=== PATIENT | female | born 1935 | race Caucasian/White ===

== ENCOUNTER 2018-08-20 10:12 | Inpatient (IN) ==
[2018-08-20 11:08] LABS: BASO# 0.04 X1000 (0.0-0.2); BASO% 0.5 % (0.0-0.8); EOS% 2.5 % (0.0-10.0); HEMATOCRIT 37.6 % (37.0-47.0); HEMOGLOBIN 11.7 g/dL (12.0-16.0); IMM GRAN# 0.01 X1000 (0.0-0.04); IMM GRAN% 0.1 % (0.0-0.5); LYMPH# 1.53 X1000 (1.2-3.4); LYMPH% 19.2 % (20.5-51.1); MCH 28.5 PG (27-31); MCHC 31.1 g/dL (33-37); MCV 91.7 FL (81-99); MONO# 0.77 X1000 (0.11-0.59); MONO% 9.6 % (1.7-9.3); MPV 9.1 FL (7.4-10.4); NEUT# 5.43 X1000 (1.4-6.5); NEUT% 68.1 % (42.2-75.2); PLT 255 X1000 (130-400); RDW 15.4 % (11.5-14.5); WBC 7.98 X1000 (4.8-10.8)
--- NOTE | 2018-08-20 11:12 | PROVIDER DOCUMENTATION ---
HPI-General Adult - General Chief Complaint: Shortness of Breath Stated Complaint: SOB Time Seen by Provider: 08/20/18 10:55 Source: patient Allergies/Adverse Reactions: Patient Allergies Allergy/AdvReac Type Severity Reaction Status Date / Time No Known Allergies Allergy Verified 08/20/18 10:52 - History of Present Illness -Gen Adult Nature of Presenting Problems: has had increasing edema to BLE, SOB for 1 week. HAs had dysuria for 2-3 days. Says that she had a cold a week ago, has been weak since that time. No fever, no CP. Nothing makes better nor worse, other than exertion Similar Symptoms Previously?: Yes Recently seen or treated by another doctor?: No Review of Systems - Adult - REVIEW OF SYSTEMS - ADULT Constitutional: reports: see HPI Eyes: reports: no symptoms reported Ears, Nose, Mouth & Throat: reports: no symptoms reported Cardiovascular: reports: see HPI, edema Respiratory: reports: see HPI Gastrointestinal: reports: see HPI Genitourinary: reports: dysuria Musculoskeletal: reports: no symptoms reported Integumentary: reports: no symptoms reported Neurological: reports: no symptoms reported Psychiatric: reports: no symptoms reported Endocrine: reports: no symptoms reported Hematologic/Lymphatic: reports: no symptoms reported Allergic/Immunologic: reports: no symptoms reported Past History - Adult - PAST MEDICAL HISTORY-ADULT Review of Records: reports: Medications Reviewed Major Childhood Illnesses: reports: denies history Cardiovascular: reports: A-Fib, CHF, HTN Respiratory: reports: denies history Gastrointestinal: reports: denies history Musculoskeletal: reports: denies history Neurological: reports: denies history Psychiatric: reports: denies history Endocrine/Immune: reports: denies history Physical Exam-General - PHYSICAL EXAM-ADULT Initial Vital Signs Reviewed: Yes - CONSTITUTIONAL General Appearance: appears well, alert, mild distress - EYES Eyes: PERRL/EOMI, pink conjunctivae - HEAD, EARS, NOSE, MOUTH & THROAT HENMT: normocephalic/atraumatic, moist mucous membranes, normal ENT inspection, pharynx normal - NECK Neck: full range of motion, supple, normal inspection - RESPIRATORY Respiratory: decreased breath sounds - CARDIOVASCULAR Cardiovascular: regular rate, rhythm, other (4+ edema to B LE/pretibial) - GASTROINTESTINAL (ABDOMEN) Abdominal Exam: non tender, soft - MUSCULOSKELETAL Back Exam: normal inspection, no CVA tenderness, no vertebral tenderness Extremity: normal range of motion, pedal edema (calf edema, tenderness) - SKIN Integumentary: warm/dry - NEUROLOGIC Neurologic: nurse infection control II-XII nml as tested, grossly normal, no motor/sensory deficits - PSYCHIATRIC Psych/Mental Status: normal mood/affect, normal thought content, normal thought process, oriented x 3 Progress - PLAN OF CARE/RESULTS Progress/Plan/Lab Results: Vital Signs - 8 hr 08/20/18 10:48 Temperature 97.9 F Pulse Rate 77 Respiratory Rate 22 Blood Pressure 175/85 O2 Sat by Pulse Oximetry 96 Laboratory Results - last 24 hr 08/20/18 11:00 WBC 7.98 RBC 4.10 L Hgb 11.7 L Hct 37.6 MCV 91.7 MCH 28.5 MCHC 31.1 L RDW Std Deviation 15.4 H Plt Count 255 MPV 9.1 Immature Gran % (Auto) 0.1 Neut % (Auto) 68.1 Lymph % (Auto) 19.2 L [place] % (Auto) 9.6 H Eos % (Auto) 2.5 Baso % (Auto) 0.5 Immature Gran # (Auto) 0.01 Neut # (Auto) 5.43 Lymph # (Auto) 1.53 [place] # (Auto) 0.77 H Eos # (Auto) 0.20 Baso # (Auto) 0.04 Orders Category Date Time Status Cardiac Monitoring DIRECTED Care 08/20/18 10:43 Active Oxygen Therapy- ED Nursing DIRECTED Care 08/20/18 10:43 Active Saline Loc NOW Care 08/20/18 10:43 Active CHEST-2 VIEWS [RAD] Stat Exams 08/20/18 10:43 Ordered CBC WITH ELECTRONIC DIFF [HEME] Stat Lab 08/20/18 11:00 Completed CK PROFILE [SP CHEM] Stat Lab 08/20/18 11:00 Received COMPREHENSIVE METABOLIC PANEL [CHEM] Stat Lab 08/20/18 11:00 Received PRO B-NATRIURETIC PEPTIDE Stat Lab 08/20/18 11:00 Received PROTIME WITH INR [COAG] Stat Lab 08/20/18 11:00 Received PTT [COAG] Stat Lab 08/20/18 11:00 Received TROPONIN T Stat Lab 08/20/18 11:[address] W/POSS RFLX CULT [URINALYSIS] Stat Lab 08/20/18 10:52 Uncollected CP/SOB/Palp >45 yrs of Age Stat Oth 08/20/18 10:42 Ordered EKG [EKG] Stat Ther 08/20/18 10:43 Ordered Result Diagrams: 08/20/18 11:00 08/20/18 11:00 - CONSULTS/PCP/HOSPITALIST Notification #1 *Consult/PCP/Hospitalist*: eDstiny Time Discussed: 13:10 Consult Disposition: Will see in ED, Admit Departure - Departure Date of Disposition Decision: 08/20/18 Time of Disposition Decision: 13:20 DIAGNOSIS: Dependent edema Congestive heart failure Qualifiers: Heart failure type: unspecified Heart failure chronicity: acute on chronic Qualified Code(s): I50.9 - Heart failure, unspecified Disposition: ADMITTED INPATIENT 09 Certified Medical Emergency: Emergent Condition: Good Additional Freetext Instructions: ED Follow Up Instructions: You have been treated by a care provider in the Emergency Department. These instructions are being provided to you so you can have an understanding of how to care for yourself upon discharge. Upon discharge from the Emergency Department, you are responsible for making arrangements for follow-up care by a physician of your choice. Take all prescribed medications as directed. Return to the Emergency Department immediately for any new or worsening symptoms. You may call the Physician Referral phone number at [phone] to obtain a list of Physicians who are taking new patients. Referrals and Follow-Ups: Ajith Dixon MD [Primary Care Provider] - - Critical Care Note This patient required my direct & personal management of CC.: No Attestation - Physician/ KENDRA Attestation Patient care was provided by Advanced Practice Provider:: No The physician spent face to face time with patient:: Yes Advanced Practice Provider documentation review:: Supervising physician onsite and consulted in the evaluation and care of this patient. The physician did have a face to face encounter with the patient.
[2018-08-20 11:30] LABS: INR 1.19; PROTIME 15.7 Seconds (11.0-16.0); PTT 30.1 Seconds (22.3-41.8)
[2018-08-20 11:31] LABS: AGAP 11; ALBUMIN 3.3 g/dL (3.5-5.0); ALKALINE PHOSPHATASE 52 U/L (32-104); BUN 14 mg/dL (8-22); CALCIUM 9.1 mg/dL (8.8-10.2); CHLORIDE 98 mmol/L (98-107); CK PROFILE 118 U/L (24-173); COSMO 275; CREATININE 0.7 mg/dL (0.5-0.9); ESTIMATED GFR > 60; GLUCOSE 108 mg/dL (70-104); GOT 15 U/L (10-30); GPT 8 U/L (10-36); POTASSIUM 4.4 mmol/L (3.5-5.1); SODIUM 137 mmol/L (136-145); TCO2 28 mmol/L (25-35); TOTAL PROTEIN 7.4 g/dL (6.3-8.3)
[2018-08-20 11:49] LABS: BILIRUBIN URINE NEGATIVE (NEGATIVE); BLOOD URINE NEGATIVE (NEGATIVE); CLARITY CLEAR (CLEAR); COLOR YELLOW; GLUCOSE URINE NEGATIVE (NEGATIVE); KETONE URINE NEGATIVE (NEGATIVE); LEUKOCYTES URINE TRACE (NEGATIVE); NITRITE URINE NEGATIVE (NEGATIVE); PH URINE 6.5; PROTEIN URINE NEGATIVE (NEGATIVE); SP GRAVITY URINE 1.015; UROBILINOGEN URINE NORMAL
[2018-08-20 11:57] LABS: URINE EPITHELIAL CELLS <10 /HPF (<10); URINE SOURCE CATH; URINE WBC <10 /HPF (<10)
[2018-08-20] MEDS ORDERED: LASIX IV ONE (12:07)
--- NOTE | 2018-08-20 12:10 | Diag Imaging Result Doc PS360 ---
CHEST-2 VIEWS - 08/20/2018 INDICATION: SOB COMPARISON: 01/07/2018 FINDINGS: There is mild to moderate cardiomegaly. Pulmonary vascularity is top normal. No focal infiltrates or edema. No pneumothorax or significant pleural effusion. IMPRESSION: Cardiomegaly. Electronically signed by Kip Diaz 08/20/2018 12:08 PM
[2018-08-20] MEDS ORDERED: TYLENOL PO PRN (15:13)
[2018-08-20] MEDS ORDERED: VANCOMYCIN IV PER PHARMACY MISC SCH (15:30)
[2018-08-20] MEDS ORDERED: FLU VACCINE IM ONE (16:29)
[2018-08-20] MEDS: VANCOMYCIN 2,000 MG in NS 500 ML IV SCH (16:44)
[2018-08-20] MEDS ORDERED: PNEUMOVAX 23 IM ONE (17:00)
[2018-08-20] MEDS: ELIQUIS PO SCH (20:18)
[2018-08-20] MEDS: ATARAX PO SCH (20:18)
[2018-08-20] MEDS: ZOSYN 3.375 GM in NS 50 ML IV SCH (20:18)
[2018-08-21] MEDS: TYLENOL WITH CODEINE #3 PO PRN (01:40)
[2018-08-21] MEDS: ZOSYN 3.375 GM in NS 50 ML IV SCH ×4 (01:40→21:43)
[2018-08-21 06:40] LABS: BASO# 0.04 X1000 (0.0-0.2); BASO% 0.4 % (0.0-0.8); EOS# 0.24 X1000 (0.0-0.7); EOS% 2.4 % (0.0-10.0); HEMATOCRIT 36.9 % (37.0-47.0); HEMOGLOBIN 11.4 g/dL (12.0-16.0); IMM GRAN# 0.02 X1000 (0.0-0.04); IMM GRAN% 0.2 % (0.0-0.5); LYMPH# 1.53 X1000 (1.2-3.4); LYMPH% 15.4 % (20.5-51.1); MCH 28.4 PG (27-31); MCHC 30.9 g/dL (33-37); MCV 91.8 FL (81-99); MONO# 1.05 X1000 (0.11-0.59); MONO% 10.6 % (1.7-9.3); MPV 9.4 FL (7.4-10.4); NEUT# 7.07 X1000 (1.4-6.5); PLT 262 X1000 (130-400); RBC 4.02 XMIL (4.2-5.4); RDW 15.3 % (11.5-14.5); WBC 9.95 X1000 (4.8-10.8)
[2018-08-21 07:01] LABS: AGAP 9; ALBUMIN 3.2 g/dL (3.5-5.0); ALKALINE PHOSPHATASE 52 U/L (32-104); BUN 14 mg/dL (8-22); CALCIUM 8.8 mg/dL (8.8-10.2); CHLORIDE 95 mmol/L (98-107); COSMO 270; CREATININE 0.8 mg/dL (0.5-0.9); ESTIMATED GFR > 60; GLUCOSE 115 mg/dL (70-104); GOT 15 U/L (10-30); GPT 8 U/L (10-36); SODIUM 134 mmol/L (136-145); TCO2 30 mmol/L (25-35); TOTAL PROTEIN 7.3 g/dL (6.3-8.3)
[2018-08-21] MEDS: CELEXA PO SCH (08:38)
[2018-08-21] MEDS: ZYLOPRIM PO SCH (08:38)
[2018-08-21] MEDS: ELIQUIS PO SCH ×2 (08:38→21:44)
[2018-08-21] MEDS ORDERED: LASIX IV SCH (09:00)
[2018-08-21] MEDS ORDERED: LASIX PO SCH ×2 (09:00→11:32)
[2018-08-21 12:11] LABS: AGAP 8; ALBUMIN 3.3 g/dL (3.5-5.0); ALKALINE PHOSPHATASE 51 U/L (32-104); BUN 14 mg/dL (8-22); CALCIUM 8.8 mg/dL (8.8-10.2); CHLORIDE 91 mmol/L (98-107); COSMO 268; CREATININE 0.8 mg/dL (0.5-0.9); ESTIMATED GFR > 60; GLUCOSE 126 mg/dL (70-104); GOT 13 U/L (10-30); GPT 7 U/L (10-36); POTASSIUM 3.8 mmol/L (3.5-5.1); SODIUM 133 mmol/L (136-145); TCO2 34 mmol/L (25-35); TOTAL PROTEIN 7.2 g/dL (6.3-8.3)
--- NOTE | 2018-08-21 12:15 | PROGRESS NOTE ---
DATE: 08/21/2018 SUBJECTIVE: This is an 83-year-old female who was admitted through the ER with massive edema associated with erysipelas in her legs and decubitus that have developed in her back from being bedridden and urinating on herself for a period of time. Today, her legs are significantly better. They are no longer weeping, they are no longer shiny, and actually they are a little bit scaly. DIAGNOSTIC DATA: Electrolytes are normal. CO2 is a little high at 30. Potassium is 4. Blood sugars in the low 100s. LFTs are normal. Albumin is a bit low at 3.2. Her chest x-ray showed there was cardiomegaly, prominent pulmonary vasculature. Her chemistries when she got in showed her BUN was 14, creatinine of 0.7 and 0.8. ASSESSMENT AND PLAN: We will reorder her electrolytes. She has had a pretty significant diuresis. She looks better. cc: Ajith Dixon MD
[2018-08-21] MEDS: LASIX IV SCH ×2 (14:01→23:13)
[2018-08-21] MEDS: VANCOMYCIN 2,000 MG in NS 500 ML IV SCH (16:12)
[2018-08-21] MEDS: ATARAX PO SCH (21:44)
[2018-08-22] MEDS: ZOSYN 3.375 GM in NS 50 ML IV SCH ×4 (01:51→21:18)
[2018-08-22] MEDS: CELEXA PO SCH (09:37)
[2018-08-22] MEDS: ELIQUIS PO SCH ×2 (09:37→21:18)
[2018-08-22] MEDS: ZYLOPRIM PO SCH (09:37)
[2018-08-22] MEDS: LASIX IV SCH ×2 (12:08→23:54)
[2018-08-22] MEDS: VANCOMYCIN 2,000 MG in NS 500 ML IV SCH (18:08)
[2018-08-22] MEDS: TYLENOL WITH CODEINE #3 PO PRN (19:52)
[2018-08-22] MEDS: ATARAX PO SCH (21:18)
[2018-08-23] MEDS: ZOSYN 3.375 GM in NS 50 ML IV SCH ×4 (01:12→21:19)
[2018-08-23] MEDS ORDERED: CATAPRES PO ONE (08:12)
[2018-08-23] MEDS: ZYLOPRIM PO SCH (08:50)
[2018-08-23 08:51] LABS: BASO# 0.06 X1000 (0.0-0.2); BASO% 0.7 % (0.0-0.8); EOS# 0.26 X1000 (0.0-0.7); EOS% 2.9 % (0.0-10.0); HEMATOCRIT 38.3 % (37.0-47.0); HEMOGLOBIN 12.1 g/dL (12.0-16.0); IMM GRAN# 0.01 X1000 (0.0-0.04); IMM GRAN% 0.1 % (0.0-0.5); LYMPH# 1.37 X1000 (1.2-3.4); LYMPH% 15.1 % (20.5-51.1); MCH 28.9 PG (27-31); MCHC 31.6 g/dL (33-37); MCV 91.4 FL (81-99); MONO# 0.77 X1000 (0.11-0.59); MONO% 8.5 % (1.7-9.3); MPV 9.2 FL (7.4-10.4); NEUT# 6.62 X1000 (1.4-6.5); NEUT% 72.7 % (42.2-75.2); PLT 261 X1000 (130-400); RBC 4.19 XMIL (4.2-5.4); RDW 15.3 % (11.5-14.5); WBC 9.09 X1000 (4.8-10.8)
[2018-08-23] MEDS: ELIQUIS PO SCH ×2 (08:51→21:19)
[2018-08-23] MEDS: CELEXA PO SCH (08:51)
[2018-08-23 09:27] LABS: AGAP 12; ALBUMIN 3.2 g/dL (3.5-5.0); ALKALINE PHOSPHATASE 47 U/L (32-104); BUN 15 mg/dL (8-22); CALCIUM 8.8 mg/dL (8.8-10.2); CHLORIDE 90 mmol/L (98-107); COSMO 272; CREATININE 0.8 mg/dL (0.5-0.9); ESTIMATED GFR > 60; GLUCOSE 112 mg/dL (70-104); GOT 13 U/L (10-30); GPT 8 U/L (10-36); POTASSIUM 3.6 mmol/L (3.5-5.1); SODIUM 135 mmol/L (136-145); TCO2 33 mmol/L (25-35); TOTAL PROTEIN 7.5 g/dL (6.3-8.3)
[2018-08-23] MEDS: LASIX IV SCH ×2 (12:18→21:19)
[2018-08-23] MEDS: TYLENOL WITH CODEINE #3 PO PRN (14:43)
[2018-08-23] MEDS: VANCOMYCIN 2,000 MG in NS 500 ML IV SCH (16:27)
--- NOTE | 2018-08-23 18:00 | PROGRESS NOTE ---
DATE: 08/23/2018 SUBJECTIVE: The patient continues to diurese significantly. OBJECTIVE: Vital signs: Temperature 97.7, pulse 70, respiratory rate 18, BP 147/62. O2 saturation 96% on 2 L nasal cannula. Both her legs are dressed with Unna boots. Her visible skin on the top of her feet is no longer edematous. No longer erythematous and seems to be dry and scaling. She is breathing okay. She is anxious to get to the rehab center to try to increase her chances of being able to stay at home. PLAN: We are awaiting placement on her and continue the current therapy with the IV antibiotics. I will probably stop them tomorrow. cc: Ajith Dixon MD
--- NOTE | 2018-08-23 18:01 | PROGRESS NOTE ---
DATE: 08/22/2018 SUBJECTIVE: The patient was doing fine on 08/22, lying in bed with no problems. Legs looked significantly better. No issues with breathing. Not particularly lightheaded upon standing. DATA BASE: No labs were drawn today. We will continue to follow her electrolytes in the morning. I suspect we need to place her in a rehab and will follow up from there. cc: Ajith Dixon MD
--- NOTE | 2018-08-23 18:44 | HISTORY AND PHYSICAL ---
HISTORY OF PRESENT ILLNESS: This is an 83-year-old white female who has been a patient of mine for quite some time. Her daughter is a scrub nurse at [employer]. She was brought to the ER after having noticeable increase in her edema of the bilateral lower extremities associated with increase in shortness of breath. She is pretty much bedridden and just stays wet in the bed. She had a cold-like symptom a week prior to her presentation and has been particularly weak since then and not able to recover, denying any fever or chest pains. No aggravating factors other than exertion and sometimes lying too flat. She has, however, been having some problems with pain and discomfort in her lower extremities. They are, in fact, very edematous with significant erythematous skin, shiny that has begun to weep. She was seen in the ER and admitted because of shortness of breath, possible heart failure, morbid obesity. ALLERGIES: No known allergies. PAST MEDICAL HISTORY: She has had a history of hypertension for some time associated with a history of atrial fibrillation and CHF in the past. She denies any significant problems otherwise. She is, however, a drinker and has a pretty big appetite for alcohol. REVIEW OF SYSTEMS: She is very heavy and has not weighed herself to see whether she is gaining weight or not but just by the feel of her edema, she feels like she is significantly heavier. Eyes: No change in visual acuity, irritation. Ears, nose and throat: No pharyngitis, otitis or rhinitis. Cardiovascular: She denies any chest pain. She has edema but no significant orthostatic component. No PND. Respiratory: No significant cough, wheeze. She is not particularly short of breath but her activity level is basically laying in the bed. Gastrointestinal: No nausea, vomiting, diarrhea or constipation. No melena or hematochezia, dysphagia. Genitourinary: She has dysuria, frequency, no hematuria. Musculoskeletal: She has some chronic aches and pains from lying in the bed. Skin: She has some breakdown areas on her buttock bilaterally. She also has the erysipelas in her lower extremities. Neurologic: She has no focal neurological deficits. Psychiatric: Negative. As previously mentioned, she is a drinker saying she has slacked up on her drinking. No history of neurosis, psychosis or dementia. She is an avid reader. Endocrine: No hypothyroidism. No history of diabetes. Allergic: No asthma or pneumonia. PHYSICAL EXAMINATION: VITAL SIGNS: At the time of admission temperature 97.9, pulse 77, respiratory rate 22, blood pressure 175/85, O2 saturation 96%. HEENT: Head normocephalic. Eyes: PERRLA. EOMs intact. SE clear. Fundi: Nonvisualized. Nares: patent. TMs negative. Oropharynx negative. NECK: Supple. No JVD. Midline trachea. No lymphadenopathy. No thyromegaly. LUNGS: Bilaterally clear breath sounds. CARDIOVASCULAR: Regular rate and rhythm. No murmurs, rubs or gallops. No clicks or rubs. ABDOMEN: Grossly obese. No hepatosplenomegaly. Positive bowel sounds. EXTREMITIES: 4+ edema. Peripheral pulses were palpable. Skin was shiny and weeping serum. ADMITTING DIAGNOSES: 1. Morbid obesity. 2. Peripheral edema with erysipelas. 3. Decubitus ulcer. 4. History of hypertension. 5. General failure to thrive. PLAN: She was admitted for diuresis and we are going to start Zosyn and vancomycin for her erysipelas. We are going to try to insert a Bonds to get an intake and output on her and will continue this for the next couple of days. cc: Ajith Dixon MD
[2018-08-23] MEDS: ATARAX PO SCH (21:19)
[2018-08-24] MEDS: TYLENOL WITH CODEINE #3 PO PRN ×2 (02:47→18:21)
[2018-08-24] MEDS: ZOSYN 3.375 GM in NS 50 ML IV SCH ×4 (02:48→20:28)
[2018-08-24] MEDS: LASIX IV SCH ×2 (09:09→20:30)
[2018-08-24] MEDS: CELEXA PO SCH (09:10)
[2018-08-24] MEDS: ELIQUIS PO SCH ×2 (09:10→20:10)
[2018-08-24] MEDS: ZYLOPRIM PO SCH (09:10)
[2018-08-24] MEDS: VANCOMYCIN 2,000 MG in NS 500 ML IV SCH (18:16)
[2018-08-24] MEDS: ATARAX PO SCH (20:10)
[2018-08-25] MEDS: ZOSYN 3.375 GM in NS 50 ML IV SCH ×4 (02:01→20:59)
[2018-08-25] MEDS: CELEXA PO SCH (08:45)
[2018-08-25] MEDS: ZYLOPRIM PO SCH (08:45)
[2018-08-25] MEDS: LASIX IV SCH ×2 (08:45→21:01)
[2018-08-25] MEDS: ELIQUIS PO SCH ×2 (08:45→21:01)
--- NOTE | 2018-08-25 10:35 | Diag Imaging Result Doc PS360 ---
EXAM: CHEST-2 VIEWS HISTORY: wheezy and cough TECHNIQUE: Chest two views COMPARISON: 08/20/2018 FINDINGS: The heart remains enlarged. There is mild pulmonary edema. No pleural effusions. No consolidation. IMPRESSION: Cardiomegaly with pulmonary edema Electronically signed by Harjeet Chaves 08/25/2018 10:32 AM
--- NOTE | 2018-08-25 16:11 | PROGRESS NOTE ---
DATE: 08/25/2018 The patient is in the hospital with cellulitis of her lower extremities. She has been wearing an Unna boot since she got admitted to the hospital. Today, her vital signs: Temperature is 97.7, pulse is 73, respiratory rate is 18, blood pressure is 160/75, oxygen saturation on 2L 97%. We removed the bandages. She has some ulcerations. Wounds generally look better. No erythema. No significant heat, there is just generally a purplish hue. We are going to put the bandage back on and have intentions of putting her in a rehab program. cc: Ajith Dixon MD
[2018-08-25] MEDS: VANCOMYCIN 2,000 MG in NS 500 ML IV SCH (18:52)
[2018-08-25] MEDS: ATARAX PO SCH (21:01)
[2018-08-26] MEDS: ZOSYN 3.375 GM in NS 50 ML IV SCH ×2 (04:17→09:32)
[2018-08-26] MEDS: CELEXA PO SCH (09:31)
[2018-08-26] MEDS: ZYLOPRIM PO SCH (09:31)
[2018-08-26] MEDS: ELIQUIS PO SCH (09:31)
[2018-08-26] MEDS: LASIX IV SCH (09:32)
--- NOTE | 2018-08-26 09:57 | DISCHARGE SUMMARY ---
ADMISSION DATE: 08/21/2018 DISCHARGE DATE: HOSPITAL COURSE: Mckenna Crocker was admitted here because of progressive peripheral swelling, fall risk, and erysipelas in the lower extremities. She was admitted from the ER and placed on broad spectrum antibiotics, Zosyn and vancomycin. Feet put in Unna boots, legs in Unna boots. She wore those for most of the stay. We removed them yesterday. They look significantly better. There is still purplish discoloration to the anterior shins but no weeping sores. There are still a few superficial sores on the shins about the size of a dime. We are going to discharge her today for rehab about her falls that she has had walking to try to see if we can get her to be more upright. She also has some background stuff that was not of any consequence during this hospital stay. She has a history of morbid obesity, chronic edema, history of dyslipidemia, and gout. She has some coronary artery disease which is followed at the cardiology center. She is on Xarelto for some atrial fibrillation, Benicar HCT for high blood pressure, allopurinol for gout, preventative. She has been on Celexa in the past 20 mg, and she has been taking furosemide 80 mg once daily leading up to this hospital stay. Her atrial fibrillation is paroxysmal. She has a nonischemic cardiomyopathy. In 2007, she had an ejection fraction of 40% with minimal coronary artery disease. We are transferring her to a rehab center to see if we can get her more self dependent. cc: Ajith Dixon MD
[2018-08-26 13:23] VITALS: BP 154/63
== END 2018-08-26 14:20 | DRG 603 ==
LOC: SUPCPDRO → P.MEDSURG 10:12 → P.ED 10:12
PROVIDERS: ADMIT Internal Medicine; ATTEND Internal Medicine
CPT/HCPCS: 51702; 71020; 71046; 80053; 80202; 81001; 82550; 82948; 83735; 83880; 84484; 85025; 85610; 85730; 93005; 94761; 96374; 97110; 97163; 99285; A9270; J1940; J2543; J3370; J7040; XXXXX

== ENCOUNTER 2019-09-11 11:17 | Inpatient (IN) ==
[2019-09-11] MEDS ORDERED: ZOFRAN IV ONE (11:39)
[2019-09-11] MEDS ORDERED: NS 1,000 ML IV ONE (11:39)
[2019-09-11] MEDS ORDERED: DUONEB (A & A) INH ONE (11:39)
[2019-09-11] MEDS ORDERED: MORPHINE IV ONE (11:39)
[2019-09-11] MEDS ORDERED: ZOSYN 4.5 GM in NS 100 ML IV ONE (11:40)
[2019-09-11 12:09] LABS: BASO# 0.05 X1000 (0.0-0.2); BASO% 0.4 % (0.0-0.8); EOS# 0.22 X1000 (0.0-0.7); EOS% 1.9 % (0.0-10.0); HEMATOCRIT 38.3 % (37.0-47.0); HEMOGLOBIN 12.4 g/dL (12.0-16.0); IMM GRAN# 0.07 X1000 (0.0-0.04); IMM GRAN% 0.6 % (0.0-0.5); LYMPH# 1.17 X1000 (1.2-3.4); LYMPH% 10.4 % (20.5-51.1); MCH 32.2 PG (27-31); MCHC 32.4 g/dL (33-37); MCV 99.5 FL (81-99); MONO# 0.63 X1000 (0.11-0.59); MONO% 5.6 % (1.7-9.3); MPV 9.7 FL (7.4-10.4); NEUT# 9.16 X1000 (1.4-6.5); NEUT% 81.1 % (42.2-75.2); PLT 259 X1000 (130-400); RBC 3.85 XMIL (4.2-5.4); RDW 14.1 % (11.5-14.5)
[2019-09-11 12:12] LABS: INR 1.14; PROTIME 14.7 Seconds (11.0-16.0)
[2019-09-11 12:13] LABS: PTT 28.6 Seconds (22.3-41.8)
[2019-09-11 12:24] LABS: ALLEN TEST YES; BE 5.4 mmoll (-3.0-3.0); BLOOD TYPE ARTERIAL; O2(CT) 19.3 mL/dL (15.0-23.0); PO2(98.6) 76 mmHg (60-100); SAMPLE BLOOD; SAO2 97.1 % (95.0-100.0); THB 14.6 g/dL (11.5-17.4)
[2019-09-11 12:26] LABS: MODALITY CANNULA; PCO2(98.6) 51 mmHg (35-45)
[2019-09-11 12:40] LABS: URINE SOURCE CATH
[2019-09-11 12:44] LABS: BILIRUBIN URINE NEGATIVE (NEGATIVE); BLOOD URINE NEGATIVE (NEGATIVE); COLOR YELLOW; GLUCOSE URINE NEGATIVE (NEGATIVE); KETONE URINE NEGATIVE (NEGATIVE); LEUKOCYTES URINE NEGATIVE (NEGATIVE); NITRITE URINE NEGATIVE (NEGATIVE); PH URINE 6.5; PROTEIN URINE NEGATIVE (NEGATIVE); SP GRAVITY URINE 1.017; TURBIDITY URINE CLEAR (CLEAR); UROBILINOGEN URINE NORMAL (NORMAL)
[2019-09-11 12:46] LABS: UR EPITHELIAL CELLS <10 /HPF (<10); URINE BACTERIA NEGATIVE /HPF; URINE RBC <10 /HPF (<10); URINE WBC <10 /HPF (<10)
[2019-09-11 13:03] LABS: ALB/GLOB RATIO 0.9; ALBUMIN 3.5 g/dL (3.5-5.0); MAGNESIUM 2.3 mg/dL (1.5-2.7); POTASSIUM 3.9 mmol/L (3.5-5.1); TOTAL BILIRUBIN 0.51 mg/dL (0.20-1.00); TOTAL PROTEIN 7.4 g/dL (6.3-8.3)
--- NOTE | 2019-09-11 13:35 | Diag Imaging Result Doc PS360 ---
EXAM: CT HEAD/C-SPINE W/O CONTRAST INDICATION: head injury/pain TECHNIQUE: This exam was performed using automated exposure control, adjustment of mA or kV according to patient size, and/or use of iterative reconstruction technique. COMPARISON: None. FINDINGS: Head: There is mild patchy low attenuation in the periventricular and subcortical white matter suggesting mild microangiopathy. There is no definite acute infarct given the limited sensitivity of CT versus MRI. There is no discrete intracranial mass, mass effect, or intracranial hemorrhage. The surrounding soft tissues are essentially unremarkable. The calvaria is intact. C-spine: There is advanced multilevel facet arthropathy throughout the cervical spine. There is milder degenerative disc disease. The bony central canal appears to be largely patent. There is foraminal narrowing related to facet arthropathy at several levels. Otherwise, there is no discrete fracture, subluxation, or intrinsic osseous lesion. The surrounding soft tissues are essentially unremarkable. IMPRESSION: 1.Mild chronic appearing white matter changes but no evidence of acute intracranial pathology. 2.Advanced multilevel facet arthropathy but no evidence of fracture or other definite acute C-spine injury. Electronically signed by Rakan Arias 09/11/2019 1:33 PM
--- NOTE | 2019-09-11 14:50 | Diag Imaging Result Doc PS360 ---
EXAM: CHEST-PORTABLE INDICATION: fall, chf TECHNIQUE: One view COMPARISON: 09/30/2018 FINDINGS: Inspiration is suboptimal. The central vasculature is prominent suggesting pulmonary venous congestion. There is probably a component of mild interstitial edema as well. There is stable cardiomegaly. IMPRESSION: Pulmonary venous congestion and mild interstitial edema as described. Electronically signed by Rakan Arias 09/11/2019 2:47 PM
--- NOTE | 2019-09-11 14:51 | Diag Imaging Result Doc PS360 ---
EXAM: ANKLE COMPLETE RIGHT INDICATION: fall TECHNIQUE: 3 views COMPARISON: None. FINDINGS: There is an oblique nondisplaced fracture through the distal shaft of the fibula. Calcaneal bone spurring is noted. No other discrete fracture or dislocation is appreciated. There is soft tissue edema around the ankle. IMPRESSION: Fracture of the distal fibula as described. Electronically signed by Rakan Arias 09/11/2019 2:48 PM
--- NOTE | 2019-09-11 16:04 | PROVIDER DOCUMENTATION ---
This chart was entered by Jaylyn Jones Scribe, acting as scribe for Jarek Kwok MD. HPI-Musculoskeletal Pain/Inj - GENERAL Chief Complaint: SEPSIS ALERT Stated Complaint: ankle pain, fall Time Seen by Provider: 09/11/19 11:28 Source: patient, EMS (first response) - HX OF PRESENT ILLNESS-MUSKULOSKELTAL Nature of Presenting Problem: 84 yowf presents to the ed via ems with c/o rt lateral ankle pain. pt just STONE [place] was getting out of a walk in tub when she slipped landing on rt ankle. pt did hit her head but denies LOC. she is unable to bear weight on rt ankle and has noted mild swelling. she currently is on blood thinner. pt also self diagnosed herself with the Flu 2 days and has sx of cough and congestion Quality of Pain: reports: aching Severity in ED: moderate Onset/Duration: just prior to arrival Timing: still present Modifying Factors: improves with: immobilization. worse with: movement, palpation Any recent injury?: Yes (fell in bath tub) Locality of Occurance: Home Similar Symptoms Previously?: No Recently seen or treated by another doctor?: No - FALL INJURY Location of Pain/Injury: reports: lower extremity (rt lateral ankle) Pain Radiation: reports: no radiation Reason for Fall: reports: slipped Symptoms prior to fall:: reports: none Loss of Consciousness: no loss of consciousness Injury Associated Symptoms: reports: joint pain, unable to bear weight, trouble walking. denies: back/neck pain, chest pain, dizziness, nausea, shortness of breath, snap/crack/pop sensation, vomiting - LOWER EXTREMITY PAIN/INJURY Lower Extremities Pain: ankle: right (with mild swelling noted) Context / Method of Injury: reports: fell Associated Symptoms: reports: denies symptoms Review of Systems - Adult - REVIEW OF SYSTEMS - ADULT Constitutional: reports: no symptoms reported Eyes: denies: blurred vision, double vision Ears, Nose, Mouth & Throat: reports: no symptoms reported Cardiovascular: denies: chest pain, palpitations Respiratory: reports: no symptoms reported Gastrointestinal: denies: abdominal pain, diarrhea, nausea, vomiting Genitourinary: reports: no symptoms reported Musculoskeletal: reports: see HPI, joint pain, joint swelling (mild). denies: back pain, neck pain Integumentary: reports: no symptoms reported Neurological: denies: dizziness/vertigo, headache/migraines Psychiatric: reports: no symptoms reported Endocrine: reports: no symptoms reported Hematologic/Lymphatic: reports: no symptoms reported Allergic/Immunologic: reports: no symptoms reported All Other Systems: Reviewed and Negative Past History - Adult - PAST MEDICAL HISTORY-ADULT Review of Records: reports: Old Records Reviewed, Nursing Assessment Review Major Childhood Illnesses: reports: denies history Cardiovascular: reports: A-Fib, CAD, CHF, HTN Respiratory: reports: denies history Gastrointestinal: reports: denies history Obstetrical/Gynecological: reports: denies history Genitourinary: reports: denies history Musculoskeletal: reports: arthritis Neurological: reports: denies history Psychiatric: reports: denies history Endocrine/Immune: reports: denies history Other Conditions: reports: denies history Additional History: skin ca - PRIOR SURGERIES/PROCEDURES Surgical/Procedure History: reports: appendectomy - IMMUNIZATION STATUS Childhood Immunizations: See Nurse Assessment Flu Vaccine: See Nurse Assessment - FAMILY HISTORY Family History: reviewed, not pertinent - SOCIAL HISTORY Smoking: denies Substance Use: denies Living Situation: family Physical Exam-Injury Related - Physical Exam-Injury Related Initial Vital Signs Reviewed: Yes General Appearance: alert, no apparent distress (nontoxic in appearance), obese Eyes: PERRL/EOMI, pink conjunctivae Head, Ears, Nose, Mouth & Throat: moist mucous membranes Neck: non-tender, full range of motion, supple, normal inspection Respiratory: chest non-tender, no respiratory distress, rhonchi, wheezing (inspiratory/expiratory) Cardiovascular: normal peripheral pulses, regular rate, rhythm Chest/Breast: deferred Abdominal Exam: normal bowel sounds, non tender, soft Female Genitalia/Pelvic Exam: deferred Rectal Exam: deferred Hemoccult Exam: deferred Lymphatic: no adenopathy Back Exam: no CVA tenderness, no vertebral tenderness Extremity: normal capillary refill, pelvis stable, swelling (rt lateral ankle), tenderness (rt lateral ankle). negative: normal gait Integumentary: normal color, warm/dry Neurologic: grossly normal Psych/Mental Status: normal mood/affect, normal thought content, normal thought process, oriented x 3 - Glascow Coma Score Best Eye Response (Luck): (4) open spontaneously Best Verbal Response (Luck): (5) oriented Best Motor Response (Alvina): (6) obeys commands Alvina Total: 15 Progress - PLAN OF CARE/RESULTS Progress/Plan/Lab Results: Vital Signs - 8 hr 09/11/19 11:27 09/11/19 12:09 09/11/19 15:06 Temperature 98.5 F Pulse Rate 78 77 77 Respiratory Rate 24 20 20 Blood Pressure 146/72 146/72 O2 Sat by Pulse Oximetry 93 L 96 95 09/11/19 12:09 Influenza Screen - Final Nasopharyngeal 09/11/19 12:10 Group A Strep Rapid Antigen - Final Throat Laboratory Results - last 24 hr 09/11/19 09/11/19 09/11/19 11:52 11:52 11:52 WBC RBC Hgb Hct MCV MCH MCHC RDW Std Deviation Plt Count MPV Immature Gran % (Auto) Neut % (Auto) Lymph % (Auto) [place] % (Auto) Eos % (Auto) Baso % (Auto) Immature Gran # (Auto) Neut # (Auto) Lymph # (Auto) [place] # (Auto) Eos # (Auto) Baso # (Auto) PT INR PTT (Actin FS) Specimen Type Sample Site pH pCO2 pO2 HCO3 Base Excess Oxyhemoglobin ABG O2 Sat (Calculated) ABG O2 Saturation ABG Carboxyhemoglobin ABG Methemoglobin Bill Test A-a O2 Difference Total Hemoglobin Lactate Liter Flow Blood Gas Modality FiO2 % Sodium 129 L Potassium 3.9 Chloride 89 L Carbon Dioxide 27 Anion Gap 13 BUN 31 H Creatinine 1.0 H Estimated GFR/1.73 m2 53 BUN/Creatinine Ratio 31 Glucose 112 H POC Glucose Calculated Osmolality 266 Calcium 9.0 Magnesium 2.3 Total Bilirubin 0.51 AST 12 ALT 6 L Alkaline Phosphatase 52 Creatine Kinase 113 Troponin T High Sens Mwt-D-Gnopbnwribu Pept 950 H Total Protein 7.4 Albumin 3.5 Globulin 3.9 Albumin/Globulin Ratio 0.9 Plasma Lactate Urine Source Urine Color Urine Turbidity Urine pH Ur Specific Nora Urine Protein Ur Glucose (Stick) Ur Ketones (Stick) Urine Blood Urine Nitrite Urine Bilirubin Urobilinogen Dipstick Urine Leukocytes Urine WBC (Auto) Urine RBC (Auto) U Epithel Cells (Auto) Urine Bacteria (Auto) Acetone Level NEGATIVE 09/11/19 09/11/19 09/11/19 11:52 11:52 11:52 WBC 11.30 H RBC 3.85 L Hgb 12.4 Hct 38.3 MCV 99.5 H MCH 32.2 H MCHC 32.4 L RDW Std Deviation 14.1 Plt Count 259 MPV 9.7 Immature Gran % (Auto) 0.6 H Neut % (Auto) 81.1 H Lymph % (Auto) 10.4 L [place] % (Auto) 5.6 Eos % (Auto) 1.9 Baso % (Auto) 0.4 Immature Gran # (Auto) 0.07 H Neut # (Auto) 9.16 H Lymph # (Auto) 1.17 L [place] # (Auto) 0.63 H Eos # (Auto) 0.22 Baso # (Auto) 0.05 PT 14.7 INR 1.14 PTT (Actin FS) 28.6 Specimen Type Sample Site pH pCO2 pO2 HCO3 Base Excess Oxyhemoglobin ABG O2 Sat (Calculated) ABG O2 Saturation ABG Carboxyhemoglobin ABG Methemoglobin Bill Test A-a O2 Difference Total Hemoglobin Lactate Liter Flow Blood Gas Modality FiO2 % Sodium Potassium Chloride Carbon Dioxide Anion Gap BUN Creatinine Estimated GFR/1.73 m2 BUN/Creatinine Ratio Glucose POC Glucose Calculated Osmolality Calcium Magnesium Total Bilirubin AST ALT Alkaline Phosphatase Creatine Kinase Troponin T High Sens 29 H Djl-C-Ihfydkhkitm Pept Total Protein Albumin Globulin Albumin/Globulin Ratio Plasma Lactate Urine Source Urine Color Urine Turbidity Urine pH Ur Specific Nora Urine Protein Ur Glucose (Stick) Ur Ketones (Stick) Urine Blood Urine Nitrite Urine Bilirubin Urobilinogen Dipstick Urine Leukocytes Urine WBC (Auto) Urine RBC (Auto) U Epithel Cells (Auto) Urine Bacteria (Auto) Acetone Level 09/11/19 09/11/19 09/11/19 11:52 12:10 12:30 WBC RBC Hgb Hct MCV MCH MCHC RDW Std Deviation Plt Count MPV Immature Gran % (Auto) Neut % (Auto) Lymph % (Auto) [place] % (Auto) Eos % (Auto) Baso % (Auto) Immature Gran # (Auto) Neut # (Auto) Lymph # (Auto) [place] # (Auto) Eos # (Auto) Baso # (Auto) PT INR PTT (Actin FS) Specimen Type ARTERIAL Sample Site R RADIAL pH 7.40 pCO2 51 H* pO2 76 HCO3 29.0 H Base Excess 5.4 H Oxyhemoglobin 94.0 L ABG O2 Sat (Calculated) 19.3 ABG O2 Saturation 97.1 ABG Carboxyhemoglobin 2.20 ABG Methemoglobin 1.0 Bill Test YES A-a O2 Difference 60.0 Total Hemoglobin 14.6 Lactate 1.40 Liter Flow 2.0 Blood Gas Modality CANNULA FiO2 % 28.0 Sodium Potassium Chloride Carbon Dioxide Anion Gap BUN Creatinine Estimated GFR/1.73 m2 BUN/Creatinine Ratio Glucose POC Glucose Calculated Osmolality Calcium Magnesium Total Bilirubin AST ALT Alkaline Phosphatase Creatine Kinase Troponin T High Sens Ovs-A-Rmoqheuwyrv Pept Total Protein Albumin Globulin Albumin/Globulin Ratio Plasma Lactate 1.6 Urine Source CATH Urine Color YELLOW Urine Turbidity CLEAR Urine pH 6.5 Ur Specific Nora 1.017 Urine Protein NEGATIVE Ur Glucose (Stick) NEGATIVE Ur Ketones (Stick) NEGATIVE Urine Blood NEGATIVE Urine Nitrite NEGATIVE Urine Bilirubin NEGATIVE Urobilinogen Dipstick NORMAL Urine Leukocytes NEGATIVE Urine WBC (Auto) <10 Urine RBC (Auto) <10 U Epithel Cells (Auto) <10 Urine Bacteria (Auto) NEGATIVE Acetone Level 09/11/19 09/11/19 13:06 14:55 WBC RBC Hgb Hct MCV MCH MCHC RDW Std Deviation Plt Count MPV Immature Gran % (Auto) Neut % (Auto) Lymph % (Auto) [place] % (Auto) Eos % (Auto) Baso % (Auto) Immature Gran # (Auto) Neut # (Auto) Lymph # (Auto) [place] # (Auto) Eos # (Auto) Baso # (Auto) PT INR PTT (Actin FS) Specimen Type Sample Site pH pCO2 pO2 HCO3 Base Excess Oxyhemoglobin ABG O2 Sat (Calculated) ABG O2 Saturation ABG Carboxyhemoglobin ABG Methemoglobin Bill Test A-a O2 Difference Total Hemoglobin Lactate Liter Flow Blood Gas Modality FiO2 % Sodium Potassium Chloride Carbon Dioxide Anion Gap BUN Creatinine Estimated GFR/1.73 m2 BUN/Creatinine Ratio Glucose POC Glucose 123 H Calculated Osmolality Calcium Magnesium Total Bilirubin AST ALT Alkaline Phosphatase Creatine Kinase Troponin T High Sens Ltu-V-Dtlpryhqmvn Pept Total Protein Albumin Globulin Albumin/Globulin Ratio Plasma Lactate 1.0 Urine Source Urine Color Urine Turbidity Urine pH Ur Specific Nora Urine Protein Ur Glucose (Stick) Ur Ketones (Stick) Urine Blood Urine Nitrite Urine Bilirubin Urobilinogen Dipstick Urine Leukocytes Urine WBC (Auto) Urine RBC (Auto) U Epithel Cells (Auto) Urine Bacteria (Auto) Acetone Level Orders Category Date Time Status Finger Stick Blood Sugar (ED) DIRECTED Care 09/11/19 11:36 Active Bonds Cath Insertion ORDERED Care 09/11/19 11:36 Active NEWS Score >or=5:Order NEWS Bundle S.O. NOW Care 09/11/19 11:42 Active Nursing- Obtain EKG once Care 09/11/19 11:37 Active OCL Splint DIRECTED Care 09/11/19 13:37 Active Saline Loc NOW Care 09/11/19 11:37 Active ANKLE COMPLETE RIGHT [RAD] Stat Exams 09/11/19 11:38 Completed CHEST-PORTABLE [RAD] Stat Exams 09/11/19 11:[address] HEAD/C-SPINE W/O CONTRAST [CT] Stat Exams 09/11/19 11:38 Completed ABG [RESP] Routine Lab 09/11/19 12:10 Completed ACETONE SERUM [CHEM] Stat Lab 09/11/19 11:52 Completed BLOOD CULTURE [BLDCUL] Stat Lab 09/11/19 12:07 Results CBC WITH ELECTRONIC DIFF [HEME] Stat Lab 09/11/19 11:52 Completed CK PROFILE [SP CHEM] Stat Lab 09/11/19 11:52 Completed COMPREHENSIVE METABOLIC PANEL [CHEM] Stat Lab 09/11/19 11:52 Completed DIRECT STREP Stat Lab 09/11/19 12:10 Completed INFLUENZA SCREEN A/B Stat Lab 09/11/19 12:09 Completed LACTATE, PLASMA [CHEM] Lab 09/11/19 14:55 Completed LACTATE, PLASMA [CHEM] Lab 09/11/19 18:00 Uncollected LACTATE, PLASMA [CHEM] Q3H Lab 09/11/19 11:52 Completed MAGNESIUM [CHEM] Stat Lab 09/11/19 11:52 Completed PRO B-NATRIURETIC PEPTIDE Stat Lab 09/11/19 11:52 Completed PROTIME WITH INR [COAG] Stat Lab 09/11/19 11:52 Completed PTT [COAG] Stat Lab 09/11/19 11:52 Completed SPUTUM CULTURE WITH GRAM STAIN [RM] Stat Lab 09/11/19 11:38 Uncollected TROPONIN T HIGH SENSITIVITY Stat Lab 09/11/19 11:52 Completed URINALYSIS W/POSS RFLX CULT [URINALYSIS] Stat Lab 09/11/19 12:30 Completed 0.9% Sodium Chloride Inj [Ns] 1,000 ml Med 09/11/19 11:39 Discontinued IV 999 mls/hr Albuterol 2.5MG/Ipratrop 0.5MG [Duoneb (A & A)] Med 09/11/19 11:39 Discontinued 3 ml INH NOW ONE Morphine Med 09/11/19 11:39 Discontinued 4 mg IV NOW ONE Ondansetron [Zofran] Med 09/11/19 11:39 Discontinued 4 mg IV NOW ONE Piperacillin/Tazobactam [Zosyn] 4.5 gm Med 09/11/19 11:40 Discontinued 0.9% Sodium Chloride Inj [Ns] 100 ml IV NOW Aerosol Treatments Routine Oth 09/11/19 11:40 Completed Aerosol Treatments Stat Oth 09/11/19 11:40 Completed EKG [EKG] Stat Ther 09/11/19 11:37 Ordered Transfer/Admit Order [TRANSFER] Routine Transfer 09/11/19 15:30 Ordered Result Diagrams: 09/11/19 11:52 09/11/19 11:52 - EKG 1 Time of EKG reading by physician:: 13:16 EKG Read and Signed by:: Jarek Kwok EKG Interpretation (*Must complete 3 of following elements*): Abnormal Rate: 65 Rhythm: afib [place]: normal QRS: other (low qrs) [place] Interval: normal Comments: st and t wave abnormality, consider lateral ischemia - XRAY 1 XRAY: Bilateral XRAY Study: Chest Impression: See EMR Report (IMPRESSION: Pulmonary venous congestion and mild interstitial edema as described. Electronically signed by Rakan Arias 09/11/2019 2:47 PM) 2 XRAY: Right XRAY Study: Ankle Impression: See EMR Report (IMPRESSION: Fracture of the distal fibula as described. Electronically signed by Rakan Arias 09/11/2019 2:48 PM) - CT/MRI 1 CT Study: Cervical Spine, Head Impression: See EMR Report (IMPRESSION: 1.Mild chronic appearing white matter changes but no evidence of acute intracranial pathology. 2.Advanced multilevel facet arthropathy but no evidence of fracture or other definite acute C-spine injury. Electronically signed by Rakan Arias 09/11/2019 1:33 PM) - CONSULTS/PCP/HOSPITALIST Notification #1 *Consult/PCP/Hospitalist*: ortho dr siddiqi Time Discussed: 13:35 Reason/Comments: phone consult Consult Disposition: F/U in office #2 Consult: hospitalist dr pastor Time Discussed: 14:53 (spoke with ashok) Consult Disposition: Will see in ED, Admit Procedures - SPLINTING Right Lower Extremity Pre-Procedure Neurovascular Exam: Intact Splint Application (Hand-Made): Sugar-Tong (OCL splint) Applied By: ED Nurse Post Procedure Neurovascular Exam: Intact Departure - Departure Date of Disposition Decision: 09/11/19 Time of Disposition Decision: 16:03 DIAGNOSIS: Vasovagal near-syncope Fall as cause of accidental injury at home as place of occurrence Qualifiers: Encounter type: initial encounter Qualified Code(s): W19.XXXA - Unspecified fall, initial encounter; Y92.009 - Unspecified place in unspecified non- institutional (private) residence as the place of occurrence of the external cause Closed fracture of right distal fibula Qualifiers: Encounter type: initial encounter Fracture morphology: torus Qualified Code(s): S82.821A - Torus fracture of lower end of right fibula, initial encounter for closed fracture Acute exacerbation of CHF (congestive heart failure) Qualifiers: Heart failure type: combined systolic and diastolic Qualified Code(s): I50.43 - Acute on chronic combined systolic (congestive) and diastolic (congestive) heart failure Upper respiratory infection Qualifiers: URI type: unspecified viral URI Qualified Code(s): J06.9 - Acute upper respiratory infection, unspecified Disposition: ADMITTED INPATIENT 09 Certified Medical Emergency: Emergent Condition: Fair Referrals and Follow-Ups: Ajith Dixon MD [Primary Care Provider] - - Critical Care Note This patient required my direct & personal management of CC.: No Attestation - Physician/ KENDRA Attestation Patient care was provided by Advanced Practice Provider:: No The physician spent face to face time with patient:: Yes Advanced Practice Provider documentation review:: Supervising physician onsite and consulted in the evaluation and care of this patient. The physician did have a face to face encounter with the patient. This chart was documented by the indicated scribe, (Jaylyn Jones Scribe) and accurately reflects the services I performed and decisions made by me, Jarek Kwok MD, as attested by the provider's signature.
--- NOTE | 2019-09-11 17:25 | HISTORY AND PHYSICAL ---
PRIMARY CARE PHYSICIAN: Dr. Ajith Dixon. CHIEF COMPLAINT: She slipped and fell out of a walk-in tub complained of right ankle pain. HISTORY OF PRESENTING ILLNESS: This is a 84-year-old female who presents to [facility] via EMS after she was walking out of a walk-in tub and slipped and fell and complained of right lateral ankle pain, hit her head also but denied any loss of consciousness. Was unable to bear any weight on the right ankle and had noted mild swelling. Workup showed a right ankle fracture of the distal fibula. Chest x-ray showed some pulmonary venous congestion and mild interstitial edema. CT of the head and cervical spine showed mild chronic appearing white matter changes but no evidence of acute cranial disease and no evidence of fracture or other definite acute C-spine injury. Her sodium was mildly decreased at 129. She has a cast to her right leg currently and ER physician spoke with on-call orthopedics who will follow her outpatient. We are going to admit her for observation for further evaluation and treatment. PAST MEDICAL HISTORY: Atrial fibrillation, coronary artery disease, CHF, hypertension, arthritis. PAST SURGICAL HISTORY: Of an appendectomy. FAMILY HISTORY: Reviewed and noncontributory. SOCIAL HISTORY: She currently lives with family. Denies any tobacco, alcohol or illicit drug use. ALLERGIES: She has no known drug allergies. HOME MEDICATIONS: We will obtain a current list, reconcile, review and restart as appropriate. LABORATORY DATA: Showed a white blood cell count of 11.30, hemoglobin 12.4, hematocrit 38.3, platelets 259,000, PT and INR of 14.7 and 1.14. ABG with a pH of 7.40, pCO2 51, PO2 76, bicarb 29, this was on 2 L via nasal cannula. Sodium 129, potassium 3.9, chloride 89, CO2 27, BUN of 31, creatinine 1, glucose 112. Cardiac enzyme was negative, proBNP of 950, plasma lactate of 1.6. Urinalysis was negative. Acetone level negative. Right ankle x-ray showed a fracture of the distal fibula as described. Chest x-ray showed pulmonary venous congestion and mild interstitial edema. Head CT showed mild chronic appearing white matter changes. No evidence of acute intracranial pathology. C-spine showed advanced multilevel facet arthropathy but no evidence of fracture or other definite acute C-spine injury. REVIEW OF SYSTEMS: She denied any fever, chills, blurred vision, dizziness, chest pain. She has had a cough, some mild shortness of breath, states she self-diagnosed herself with the flu a couple of days ago but is noted to be flu A and B negative. Denied any abdominal pain, constipation, diarrhea, burning or hurting with urination. She did have pain to her right ankle status post her fall. PHYSICAL EXAMINATION: On arrival she had a temperature of 98.5 degrees, pulse 78, respirations 24, blood pressure 146/72, saturating 93% on room air. GENERAL: This is an 84-year-old female lying in the bed, answers questions appropriately. HEENT: Normocephalic, atraumatic. Normal ENT inspection. Oropharynx and nares are clear. Pupils are equal, round, reactive to light, accommodation. Extraocular movements are intact. NECK: Normal inspection, normal range of motion. LUNGS: With some rhonchi and expiratory wheezing bilaterally. Equal lung expansion, chest wall movement. HEART: Regular rate and rhythm. No murmurs, rubs, or gallops. ABDOMEN: Soft, nontender, nondistended. Bowel sounds are present x4 quadrants. EXTREMITY: Her right extremity was noted to be swollen at the lateral ankle with some tenderness when she first arrived, it has now been splinted with a cast up to her knee. NEUROLOGICAL: The cranial nerves 2-12 appear grossly intact. ASSESSMENT: 1. Right distal fibula fracture. 2. Fall. 3. Hyponatremia. 4. Hypertension. PLAN: She will be admitted to the medical unit, placed on telemetry, healthy heart diet. We will place on [place] 7.5 one p.o. q.4 hours p.r.n. Continue her home medications. She received a liter bolus of normal saline in the ER. We are not going to give any more fluids at this time, will continue her Lasix 80 mg p.o. daily from her home medications and will recheck a CBC, BMP in the a.m. Further orders after seen by attending. Dictated by AMARJIT Michaels for Carlos Escobar MD cc: MD Cralos Das MD
--- NOTE | 2019-09-11 18:07 | EKG Report ---
Test Performed on : 09/11/2019 1:16:45 PM Test Reason : near syncope Blood Pressure : / mmHG Vent. Rate : 065 BPM Atrial Rate : 037 BPM P-R Int : 000 ms QRS Dur : 074 ms QT Int : 376 ms P-R-T Axes : 000 051 008 degrees QTc Int : 391 ms Atrial fibrillation. Low voltage QRS ST & T wave abnormality, consider lateral ischemia Abnormal ECG When compared with ECG of 29-AUG-2018 19:11, ST elevation now present in Inferior leads Nonspecific T wave abnormality, improved in Inferior leads QT has shortened Unconfirmed Result
[2019-09-11] MEDS ORDERED: TESSALON PO PRN (18:22)
[2019-09-11] MEDS ORDERED: TYLENOL PO PRN (18:46)
[2019-09-11] MEDS ORDERED: MOTRIN PO PRN (18:46)
[2019-09-11] MEDS ORDERED: ZOFRAN IV PRN (18:46)
--- NOTE | 2019-09-11 19:21 | HISTORY AND PHYSICAL ---
ADDENDUM: Patient seen and examined by me [id number]. All the laboratory, vital signs and images were reviewed. The patient presented to the emergency department after a fall, apparently she slipped and she started having right ankle pain and actually she does have a fracture on the x- ray at the level of the distal fibula, is nondisplaced, also we had a CT scan of the head that did not show any acute problem and also th CT of the C-spine did not show any evidence of injury. Chest x-ray showed pulmonary venous congestion and mild interstitial edema. She is slightly hyponatremic. She received 1 L of fluid in the emergency department and also pain medication. Her vital signs are stable, she has been having some dry cough that has been going on for at least 1 week, no signs of infection though. She is constipated and she normally goes for a bowel movement every 1 to 2 weeks per the patient. I will put this patient on MiraLAX by mouth and also Dulcolax suppositories to see if I can help with that. She has a history of atrial fibrillation on anticoagulation, she has a history of CHF and coronary artery disease, hypertension and arthritis, she seems to be hyponatremic. Kidney function is a little bit elevated as well as the BUN compared with baseline. Like I said, she received already 1 L of fluid and I asked them to eat normally from now on. I will recheck an x-ray in the morning. If everything seems to be okay in the morning, I will go ahead and discharge this patient home. She has 2 caregivers, one during the day, one during the night. I will ask them again if they want to go to a rehab center but I doubt it, we will try to control the pain, try to help her with the constipation. For her dry cough, I will give her Tessalon as needed. On the other hand, this patient does not walk too much per the family, she has been in the recliner and then she sits in electrical wheelchair but really mild mobilization, these of course will contribute to more constipation and problems. I agree with the rest of the nurse practitioner's assessment and plan. cc: Carlos Escobar MD
[2019-09-11] MEDS: MIRALAX PO SCH (20:11)
[2019-09-11] MEDS: METAMUCIL PO SCH (20:11)
[2019-09-11] MEDS: ELIQUIS PO SCH (20:12)
[2019-09-11] MEDS: DULCOLAX PR SCH (20:13)
[2019-09-11] MEDS: NORCO-7.5 PO PRN (20:13)
[2019-09-11] MEDS: TYLENOL PM PO SCH (23:09)
[2019-09-12 06:46] LABS: CALCIUM 8.6 mg/dL (8.8-10.2); CREATININE 1.1 mg/dL (0.5-0.9); POTASSIUM 4.3 mmol/L (3.5-5.1)
[2019-09-12 06:52] LABS: BASO# 0.04 X1000 (0.0-0.2); BASO% 0.3 % (0.0-0.8); EOS% 2.4 % (0.0-10.0); HEMATOCRIT 36.3 % (37.0-47.0); HEMOGLOBIN 11.4 g/dL (12.0-16.0); IMM GRAN# 0.04 X1000 (0.0-0.04); IMM GRAN% 0.3 % (0.0-0.5); LYMPH# 1.68 X1000 (1.2-3.4); LYMPH% 13.4 % (20.5-51.1); MCH 32.5 PG (27-31); MCHC 31.4 g/dL (33-37); MCV 103.4 FL (81-99); MONO# 1.21 X1000 (0.11-0.59); MONO% 9.7 % (1.7-9.3); MPV 9.9 FL (7.4-10.4); NEUT# 9.25 X1000 (1.4-6.5); NEUT% 73.9 % (42.2-75.2); PLT 234 X1000 (130-400); RBC 3.51 XMIL (4.2-5.4); RDW 14.6 % (11.5-14.5); WBC 12.52 X1000 (4.8-10.8)
--- NOTE | 2019-09-12 08:33 | Diag Imaging Result Doc PS360 ---
EXAM: CHEST-PORTABLE INDICATION: dyspnea TECHNIQUE: One view COMPARISON: 09/11/2019 FINDINGS: Pulmonary venous congestion and mild interstitial edema is essentially unchanged. No new consolidation is identified. Cardiac silhouette is stable. IMPRESSION: Stable chest. Electronically signed by Rakan Arias 09/12/2019 8:31 AM
[2019-09-12] MEDS ORDERED: LASIX PO SCH (09:00)
[2019-09-12] MEDS: MIRALAX PO SCH (10:54)
[2019-09-12] MEDS: HYDROCHLOROTHIAZIDE PO SCH (10:55)
[2019-09-12] MEDS: BENICAR PO SCH (10:55)
[2019-09-12] MEDS: ZYLOPRIM PO SCH (10:57)
[2019-09-12] MEDS: METAMUCIL PO SCH ×2 (10:57→21:40)
[2019-09-12] MEDS: CELEXA PO SCH (10:58)
[2019-09-12] MEDS: ELIQUIS PO SCH ×2 (10:58→21:40)
[2019-09-12] MEDS: MAG-OX PO SCH (10:59)
[2019-09-12] MEDS: DULCOLAX PR SCH ×2 (11:01→21:41)
[2019-09-12] MEDS: KLONOPIN PO SCH (11:07)
[2019-09-12] MEDS ORDERED: LASIX IV ONE (11:23)
[2019-09-12] MEDS ORDERED: NS NEB INH SCH (11:30)
[2019-09-12] MEDS: NORCO-7.5 PO PRN (12:13)
[2019-09-12] MEDS: ROCEPHIN 1 GM in NS 50 ML IV SCH (13:38)
[2019-09-12] MEDS: ZITHROMAX 500 MG/NS 500 MG/250 ML IVPB IV SCH (14:12)
--- NOTE | 2019-09-12 14:43 | PROGRESS NOTE ---
DATE: 09/12/2019 SUBJECTIVE: The patient is resting in bed. She has some shortness of breath. X-ray showed pulmonary venous congestion with mild interstitial edema. She is wheezing bilaterally, so I will start this patient on breathing treatment. I will put this patient on Lasix twice a day IV. I will get a new proBNP, echocardiogram, and probably Cardiology Department will be consulted tomorrow, depending on her evolution. As per the family, she does not walk too much at home, but she was able to transfer from 1 place to another. She seems to be more weak so they have requested the possibility of sending this patient to a rehab center. I will ask physical therapy and occupational therapy to evaluate this patient, as well as the social work program coordinator. OBJECTIVE: Vital Signs: Temperature 98.5 degrees, pulse 74, respiratory rate 24, blood pressure 133/71, oxygen saturation 100% on 3 L of nasal cannula. HEENT: Head normocephalic. No trauma. PERRLA. Neck: Supple. I cannot see JVD because of her neck size. Central trachea. Chest: Decreased breath sounds globally with coarse breath sounds and expiratory wheezing. Some crepitus and mild crackles at the bases. Abdomen: Soft, nontender, nondistended. No hepatosplenomegaly. Protuberant. Extremities: Two to 3+ lower extremity edema with a right distal leg splint. LABORATORY: WBC 12.5, hemoglobin 11.4, hematocrit 36.3, platelets 234,000. Sodium 132, potassium 4.3, chloride 95, bicarbonate 28, BUN 29, creatinine 1.1, glucose 112, calcium 8.6. ASSESSMENT AND PLAN: 1. Right distal fibula fracture. A splint has been placed. She is not complaining of pain at the moment of my exam. She is able to wiggle her toes and neurovascular intact. 2. Fluid overload. This patient has a history of congestive heart failure. Her last echocardiogram showed an ejection fraction of 50%, but it looks like she has probably pulmonary hypertension and right-sided heart failure. I have increased the dose of Lasix to twice a day. I will monitor her urine output. She got a Bonds placed. Her proBNP is slightly elevated but it is about her baseline. 3. Possible bronchitis. I have placed this patient on antibiotics. We will continue to monitor. She has been coughing up some whitish-yellowish phlegm. 4. History of atrial fibrillation. Continue with the same management for now. She is on Eliquis. 5. History of coronary artery disease. Aware. 6. Morbid obesity with a body mass index of 47.3. 7. Hypertension, stable. Continue with the same management. 8. Likely chronic kidney disease. Her kidney function was good in September 2018, then in April 2019 increased to 1.1, and now has been between 1.1 and 1.0. I will monitor for now. I will keep an eye on this. 9. Generalized weakness and physical deconditioning. This patient probably will need to go to a rehab center. She does not walk too much at home, but she was able to transfer from 1 place to another. She has a caregiver at home. 10. Hypoxemic respiratory failure, likely due to bronchitis. We will continue with same management. cc: Calros Escobar MD
[2019-09-12] MEDS: XOPENEX NEB INH SCH ×2 (16:15→22:48)
[2019-09-12] MEDS: TYLENOL PM PO SCH (21:40)
[2019-09-12] MEDS: LASIX IV SCH (21:40)
--- NOTE | 2019-09-13 06:49 | Diag Imaging Result Doc PS360 ---
CHEST-PORTABLE - 09/13/2019 INDICATION: dyspnea COMPARISON: 09/12/2019 FINDINGS: Lung volumes are lower. There is slight accentuation of airspace opacifications in the right midlung and lung base. There is severe cardiomegaly and pulmonary vascular congestion. No large pleural effusions. There may be fine interstitial edema. IMPRESSION: Lower lung volumes. Accentuation of a small nonspecific infiltrates or areas of atelectasis in the right midlung and lung base. Otherwise no change. Electronically signed by Kip Diaz 09/13/2019 6:47 AM
[2019-09-13 07:38] LABS: BASO# 0.02 X1000 (0.0-0.2); BASO% 0.2 % (0.0-0.8); EOS# 0.22 X1000 (0.0-0.7); EOS% 2.2 % (0.0-10.0); HEMATOCRIT 35.3 % (37.0-47.0); LYMPH# 1.28 X1000 (1.2-3.4); LYMPH% 12.8 % (20.5-51.1); MCH 32.1 PG (27-31); MCHC 31.2 g/dL (33-37); MCV 102.9 FL (81-99); MONO# 0.72 X1000 (0.11-0.59); MONO% 7.2 % (1.7-9.3); MPV 9.9 FL (7.4-10.4); NEUT# 7.75 X1000 (1.4-6.5); NEUT% 77.6 % (42.2-75.2); PLT 221 X1000 (130-400); RBC 3.43 XMIL (4.2-5.4); RDW 14.4 % (11.5-14.5); WBC 9.99 X1000 (4.8-10.8)
[2019-09-13 07:49] LABS: CREATININE 1.1 mg/dL (0.5-0.9); MAGNESIUM 2.3 mg/dL (1.5-2.7); PHOSPHORUS 3.5 mg/dL (2.7-4.5); POTASSIUM 4.3 mmol/L (3.5-5.1)
[2019-09-13] MEDS: ZYLOPRIM PO SCH (08:18)
[2019-09-13] MEDS: MIRALAX PO SCH (08:19)
[2019-09-13] MEDS: HYDROCHLOROTHIAZIDE PO SCH (08:19)
[2019-09-13] MEDS: CELEXA PO SCH (08:19)
[2019-09-13] MEDS: BENICAR PO SCH (08:20)
[2019-09-13] MEDS: METAMUCIL PO SCH ×2 (08:20→20:13)
[2019-09-13] MEDS: LASIX IV SCH ×2 (08:21→20:14)
[2019-09-13] MEDS: DULCOLAX PR SCH ×3 (08:21→20:16)
[2019-09-13] MEDS: MAG-OX PO SCH (08:21)
[2019-09-13] MEDS: ELIQUIS PO SCH ×2 (08:22→20:13)
[2019-09-13] MEDS: KLONOPIN PO SCH (08:26)
[2019-09-13] MEDS: NORCO-7.5 PO PRN (08:40)
[2019-09-13] MEDS: ROCEPHIN 1 GM in NS 50 ML IV SCH (10:58)
[2019-09-13] MEDS: ZITHROMAX 500 MG/NS 500 MG/250 ML IVPB IV SCH (10:58)
[2019-09-13] MEDS: XOPENEX NEB INH SCH ×3 (11:30→22:19)
--- NOTE | 2019-09-13 13:05 | CONSULTATION ---
DATE OF CONSULTATION: 09/13/2019 IMPRESSION: 1. Apparent acute on chronic congestive heart failure with preserved left ventricular ejection fraction probably multifactorial in origin, and related to diastolic left ventricular dysfunction, as well as probable tendency for right-sided heart failure in the setting of morbid obesity and probable obstructive sleep apnea. 2. Mild coronary atherosclerosis by previous coronary angiography in 2007 with last myocardial perfusion study in 2013 demonstrating what was felt to be apical attenuation defect, probably breast artifact. Left ventricular ejection fraction normal. 3. Morbid obesity. 4. Hypertension. 5. Paroxysmal atrial fibrillation. 6. Currently admitted status post fall without loss of consciousness with resultant right fibula fracture, which is nondisplaced. RECOMMENDATIONS: 1. Diuresis as you are doing. 2. Follow up echocardiography result. 3. Conservative cardiovascular management overall. HISTORY: This 84-year-old, white female with past history of congestive heart failure with preserved left ventricular ejection fraction, mild coronary atherosclerosis, morbid obesity, hypertension, and paroxysmal atrial fibrillation was admitted to the emergency room after a fall without loss of consciousness and resultant right fibula fracture which is nondisplaced. B natriuretic peptide level was elevated and Cardiology is consulted for suspected congestive heart failure. She is being diuresed with IV Lasix. She has chronic tendency for exertional shortness of breath. She is actually not very active at all. She lives at home with a caregiver. She has a sister that lives in [place]. Her other family lives in either [place] or [place], [place]. There has been no chest pain nor orthopnea. She does have a tendency for prominent snoring and daytime somnolence. PAST MEDICAL HISTORY: 1. Congestive heart failure with preserved left ventricular ejection fraction, probably multifactorial. 2. Morbid obesity. 3. Paroxysmal atrial fibrillation. 4. Hypertension. 5. Mild coronary atherosclerosis. 6. Depression. 7. Mild to moderate mitral regurgitation by previous echocardiography. PAST SURGICAL HISTORY: Includes appendectomy, hip replacement surgery. HOME MEDICATIONS PRIOR TO ADMISSION: As listed. SOCIAL HISTORY: She lives at home with a caregiver. She does not smoke or use alcohol. FAMILY HISTORY: Negative for premature coronary disease. REVIEW OF SYSTEMS: Pulmonary: Noteworthy for chronic tendency for exertional shortness of breath with modest activity. There has been no orthopnea. There has been no cough. Gastrointestinal: Negative. Constitutional: Negative. Remainder of review of systems negative/noncontributory with 14 total systems reviewed. PHYSICAL EXAMINATION: General: This is a morbidly obese, elderly white female in no distress on supplemental oxygen per nasal cannula. Vital signs: Blood pressure 113/65, heart rate 76, oxygen saturation 97% on nasal cannula oxygen. HEENT exam: Extraocular movements appear intact. Mucous membranes moist. Neck: Supple. Jugular distention cannot be appreciated given obese neck. There are no carotid bruits. Chest: Clear to auscultation bilaterally. Cardiac Exam: Reveals a regular rate and rhythm with somewhat distant heart sounds. No murmur or gallop could be appreciated. Abdomen: Soft. Bowel sounds are normal. Extremities: Demonstrate some chronic venous stasis changes, but no appreciable edema. Neurologic Exam: Shows her to be alert and fully oriented. Speech is fluent. Moves all 4 extremities equally well. Skin: Warm and dry. Psychiatric exam: Reveals mood to be appropriate. PERTINENT DATA: Twelve lead EKG obtained on admission demonstrates atrial fibrillation with controlled ventricular rate response and low-voltage QRS. LABORATORY DATA: Includes white blood cell count 9.99, hematocrit 35.3, hemoglobin 11.0, platelet count 221. Sodium 134, potassium 4.3, chloride 96, carbon dioxide 28. BUN 30, creatinine 1.1, glucose 113. Pro B- natriuretic peptide level on admission 950 with repeat pro B-natriuretic peptide level today 2594, CPK 113, troponin T high-sensitivity 29. IMAGING STUDIES: Chest x-ray reviewed and are poor quality studies due to patient's morbid obesity and portable technique. cc: Young Cain MD
--- NOTE | 2019-09-13 13:59 | ORTHOPAEDICS CONSULTATION ---
DATE: 09/13/2019 REASON FOR CONSULTATION: Right distal fibular fracture. HISTORY OF PRESENT ILLNESS: Ms. Crocker is an 84-year-old white female who presented to [facility] ER via EMS after she was attempting to get out of the walk-in tub and slipped and fell. She started complaining of right lateral ankle pain. She is unable to bear any weight on her right ankle. X-ray that was obtained in the ER did reveal a right distal fibular fracture. A chest x-ray was obtained showing some pulmonary venous congestion and mild interstitial edema. She also had a CT of her head and neck due to hitting her head that showed mild chronic-appearing white matter changes but no evidence of acute intracranial process and no evidence of fracture or acute C-spine injury. She has been admitted to the hospital due to her hyponatremia and presumed congestive heart failure or pulmonary hypertension. Orthopedics has been consulted for management of his right distal fibular fracture. PAST MEDICAL HISTORY: Is atrial fibrillation, CAD, CHF, hypertension, arthritis. PAST SURGICAL HISTORY: Appendectomy. FAMILY HISTORY: Noncontributory. SOCIAL HISTORY: She currently resides at home and has family to assist her. She denies any smoking or alcohol abuse. ALLERGIES: She has no known drug allergies. HOME MEDICATIONS: Allopurinol, Eliquis, Celexa, Lasix, Benicar, MiraLAX, hydrochlorothiazide. REVIEW OF SYSTEMS: She denies any fevers, chills, or chest pain. She has had some constipation since being in the hospital, and she is complaining of right ankle pain. She also states she has had some bilateral shoulder pain since being in the hospital bed. PHYSICAL EXAMINATION: General: Ms. Crocker is lying in her bed at this time in no acute distress. Current Vital Signs: Her temperature is 98.4 degrees, blood pressure 103/60, and she is saturating 95% on room air. Extremities: Her bilateral lower extremities are noted to be edematous and darkened in color and this appears to be a chronic issue. Her right lower extremity is in a stirrup splint. She is able to wiggle her toes and has full sensation distally. Her capillary refill is less than 2 seconds. She is able to actively elevate her right arm but not her left arm. She states that it has been a chronic issue for her and she has not been able to lift it over her head in quite some time now after a childhood injury to her left hand. ASSESSMENT: Right distal fibular fracture. PLAN: She has been admitted to the hospital under the hospitalist service. She is getting Converse 7.5 for pain control. She is also getting 80 mg of Lasix to help with her swelling. When asked about her ambulatory status at home, her family states that she usually does ambulate with a walker for very short distances as she usually has a motorized wheelchair and a lift that takes her upstairs. Her splint to her lower right extremity is just a stirrup splint. We will change this to a posterior short-leg splint with a stirrup. She will follow up in office after she is discharged from the hospital, and I believe she will be going to a rehab facility at that time. She can make a follow-up appoint with Dr. Betancourt who will be seeing her later today in the hospital. Thank you for this consultation. Dictated by AMARJIT Gomez for Omkar Betancourt MD [facility]
--- NOTE | 2019-09-13 14:27 | PROGRESS NOTE ---
DATE: 09/13/2019 SUBJECTIVE: Patient is resting in bed. She is complaining of some shortness of breath. No chest pain. Chest x-ray today showed lower lung volumes, small nonspecific infiltrates or areas of atelectasis in the right mid and lung base, otherwise no change. Cardiology Department has been consulted, as well as Pulmonary Department. She initially was admitted due to a fracture at the level of the right fibula, but she really has a lot of comorbidities going on, so we decided to hospitalize this patient and try to manage her symptoms. OBJECTIVE: Vital Signs: Temperature 98.4 degrees, pulse 79, respiratory rate 18, blood pressure 103/60, oxygen saturation 95% on 3 L of nasal cannula. HEENT: Head normocephalic, no trauma. PERRLA. Neck: Supple. I cannot see JVD because of her neck size. Central trachea. Chest: Decreased breath sounds globally with coarse breath sounds and some expiratory wheezing. Probably some crepitus at the bases. Abdomen: Soft, protuberant, nontender, nondistended. No hepatosplenomegaly. Extremities: Two to three plus lower extremity edema with a right distal leg splint. Neurological examination: Patient is awake, alert. She is oriented. LABORATORY: WBC 9.9, hemoglobin 11, hematocrit 35.3, platelets 221. Sodium 134, potassium 4.3, chloride 96, bicarbonate 28. BUN 30, creatinine 1.1, glucose 113, calcium 9, magnesium 2.3. ProBNP 2584. ASSESSMENT AND PLAN: 1. Right distal fibula fracture. A splint has been placed. She is not complaining of too much pain in that area. She is able to move her toes. No neurovascular damage that I can see. 2. Fluid overload. This patient has a history of congestive heart failure. She has an ejection fraction around 50% on her previous echocardiogram, but likely she has diastolic dysfunction, and likely she has also pulmonary hypertension. I will continue with same management for now. Cardiology Department has been consulted. 3. Possible bronchitis, wheezing. This patient has been evaluated by Pulmonary Department. We will continue with same management. They added some steroids and breathing treatment on top of my breathing treatment. 4. History of atrial fibrillation. Continue with same management for now. She is on Eliquis. 5. History of coronary artery disease. Aware. 6. Morbid obesity with a body mass index of 47.3. 7. Sedentarism, aware. She moves slightly at home with help. 8. Likely chronic kidney disease. Her kidney function was good in September 2018. Then, in April 2019, the creatinine increased to 1.1. Now it has been between 1 and 1.1. We will monitor for now. 9. Generalized weakness and physical deconditioning. Probably this patient will need to go to a rehabilitation center after treatment. I will wait for family decision. I think that they want to go to one located in [place] so they can to see if the caregiver can stay with her. 10. Hypoxemic respiratory failure likely due to bronchitis. I believe this is also a combination of a lot of issues, including morbid obesity with obesity hypoventilation syndrome, and for sure sleep apnea. cc: Carlos Escobar MD
[2019-09-13] MEDS: SOLU-MEDROL IV SCH ×2 (14:52→18:26)
--- NOTE | 2019-09-13 14:53 | Diag Imaging Result Doc PS360 ---
EXAM: SHOULDER-LEFT HISTORY: Pain TECHNIQUE: Three views COMPARISON: None. FINDINGS: There is significant degenerative arthropathy with acromioclavicular osteoarthritis, large humeral head osteophyte, and irregularity about the greater tuberosity. There is subchondral sclerosis. No fracture, dislocation, `or destructive lesion. IMPRESSION: Significant degenerative arthropathy left shoulder. Electronically signed by Beth Lew 09/13/2019 2:51 PM
--- NOTE | 2019-09-13 14:56 | PULMONOLOGY CONSULTATION ---
DATE: 09/13/2019 REQUESTING PROVIDER: Dr. Carlos Escobar REASON FOR CONSULTATION: Respiratory failure. HISTORY OF PRESENT ILLNESS: This is an 84-year-old female with a medical history of paroxysmal atrial fibrillation, congestive heart failure with preserved left ventricular ejection fraction, morbid obesity, hypertension, mild coronary atherosclerosis, depression, and arthritis. She apparently had a fall in the morning of 09/11/2019 and ankle x-rays showed fracture of the distal fibula. Chest x-ray showed pulmonary venous congestion with mild interstitial edema. Blood work showed elevated proBNP. She has been on Lasix since admission with Zosyn. Zosyn has been discontinued since yesterday and antibiotics including azithromycin and ceftriaxone have been given instead. Chest x-ray this morning showed slight accentuation of airspace opacification in the right mid lung and lung base with severe cardiomegaly and pulmonary vascular congestion and possible interstitial edema. The patient currently is lying in bed on nasal cannula at 2 L. She complains of occasional cough, congestion, mild shortness of breath with activities, chronic constipation, witnessed snoring, but no fever, chills, nausea, vomiting, chest pain, palpitation, urination discomfort or wheezing. PAST MEDICAL HISTORY: 1. Morbid obesity current BMI 47.3. 2. Congestive heart failure with preserved left ventricular ejection fraction. 3. Paroxysmal atrial fibrillation. 4. Hypertension. 5. Mild coronary atherosclerosis. 6. Depression. 7. Arthritis. 8. Mild to moderate mitral regurgitation by previous echocardiogram. PAST SURGICAL HISTORY: Appendectomy. FAMILY HISTORY: Positive for heart attack and heart congestion. SOCIAL HISTORY: The patient lives at home. She has a caregiver taking care of her 20/01. She has a former smoker, smoked over 25 years with 2 packs per day. She quit smoking a long time ago. She is a former heavy drinker and quit drinking years ago. She has no illicit drug use. She was a telephone worker and retired. She has no pets inside the house. ALLERGIES: No known drug allergies. REVIEW OF SYSTEMS: A 10-point review of systems was conducted and the pertinent is listed within the HPI, otherwise noncontributory. PHYSICAL EXAMINATION: Vital Signs: Temperature 98.9, blood pressure 114/65, pulse 76, respiratory rate 20, oxygen saturation 97% on nasal cannula at 2 L. General: Morbidly obese, lying in bed with no acute distress noted with some difficulty hearing noted at times. HEENT: Atraumatic, normocephalic. Trachea midline. Mucosa pink and moist. Pupils: Equal, round, reactive to light. Respiratory: Even and unlabored. Symmetrical excursion. Auscultation revealed occasional rhonchi with expiratory wheezing bilaterally. The patient also had audible wheezing. Cardiovascular: Regular rate and rhythm with S1, S2 appreciated. Gastrointestinal: Soft, nontender, protuberant. Bowel sounds present in all 4 quadrants. Extremities: Bilateral lower extremity with some chronic venous stasis changes, but no edema, cyanosis, or clubbing noted. Dorsalis pedis 2+ bilaterally. Neurologic: Alert, oriented x3. Speech fluent. Follows commands. LAB DATA: White blood cell 9.99, hemoglobin 11.0, hematocrit 35.3, platelets 221,000. Sodium 134, potassium 94.3, chloride 96, carbon dioxide 28, BUN 40, creatinine 1.1, glucose 114. ProBNP 2584. IMAGING DATA: See HPI. ASSESSMENT: This is an 84-year-old female with a medical history of morbid obesity, paroxysmal atrial fibrillation, congestive heart failure with preserved left ventricular ejection fraction, coronary artery disease, hypertension, depression, and arthritis. She has been admitted since 09/11/2019 with right distal fibular fracture secondary to a mechanical fall at home. Further workup also showed acute on chronic congestive heart failure and possible pneumonia. 1. Mild hypoxia. 2. Possible pneumonia. 3. Acute on chronic congestive heart failure with preserved left ventricular ejection fraction. 4. Right distal fibular fracture secondary to a mechanical fall at home on 09/11/2019. 5. Morbid obesity. Current BMI 47.3 with witnessed snoring. PLAN: 1. Continue supplemental oxygen as needed and we will start weaning oxygen down when appropriate. 2. Antibiotics including azithromycin and ceftriaxone has been on since 09/12/2019. 3. Bronchodilator Xopenex has been scheduled to q. 6hours. We are adding Atrovent at this time. 4. Start IV Solu-Medrol 40 mg q .6 hours. 5. We recommend to wait on surgery for general anesthesia until pulmonary status gets better. 6. We discussed about the possible sleep apnea, but patient refused to do any outpatient sleep study. She states she cannot tolerate either the sleep study or the CPAP/BiPAP therapy. 6. Further recommendations pending hospital course. Thank you for the courtesy of this consult. Dr. Wen did the examination evaluation, management, and orders. AMARJIT did dictation for Dr. Wen according to his direction. Dictated by AMARJIT Carson for Esthela Wen MD cc: AMARJIT Carson MD [facility]
--- NOTE | 2019-09-13 15:36 | ECHO REPORT ---
ORDER DATE: 09/13/2019 ECHOCARDIOGRAPHIC MEASUREMENTS: 1. Interventricular septum 1.1. 2. Left ventricular posterior wall 1.2 cm. 3. Left ventricular diastolic diameter 3.8 cm. 4. Left atrium 4.8 cm. 5. Aorta 2.9 cm. 6. Right ventricle 5.4 cm. SUMMARY OF 2-DIMENSIONAL IMAGIN. Technically suboptimal study. Optison was used to assess left ventricular and right ventricular systolic function. 2. Right ventricle is dilated with reduced right ventricular systolic function. Moderate band noted in the right ventricular apex. Optison scan did not reveal any evidence of thrombus. 3. Right ventricular systolic function is reduced. 4. Normal left ventricular cavity size. Estimated ejection fraction of 65%. 5. Pulmonic valve was normal. 6. Mitral valve was normal. 7. Tricuspid valve was normal. 8. Indeterminate diastolic dysfunction. 9. There is mild mitral regurgitation. There is moderate to severe tricuspid regurgitation. Peak velocity across the tricuspid valve was 3.9 m/sec. 10. Pulmonary artery systolic pressure of 71 mmHg. There is severe pulmonary arterial hypertension. 11. Peak velocity across the aortic valve was 3 m/sec with a mean gradient of 21 mmHg. Aortic valve area of 1.3 squared cm. There is mild aortic stenosis, aortic valve leaflets are calcified. There is no aortic regurgitation. 12. Pulmonic valve was normal. There is mild pulmonary regurgitation. 13. There is no pericardial effusion. cc: MD Aracelis Landry PA
[2019-09-13] MEDS: ATROVENT NEB INH SCH ×2 (15:56→22:20)
--- NOTE | 2019-09-13 19:57 | ORTHOPAEDICS PROGRESS NOTE ---
DATE: 09/13/2019 REASON FOR CONSULTATION: Right ankle fracture. HISTORY OF PRESENT ILLNESS: Please see consultation note dictated in chart for full H and P. Briefly, patient is 84-year-old lady who sustained a same-level fall in her house resulting in a right ankle fracture. Orthopedic surgery was thus consulted. The patient states she is basically nonambulatory at the house. She uses a lift chair to get from bed to chair upstairs and then will use a motorized scooter and lift down the stairs to get around downstairs. She has a caregiver at home who helps with her mobilization. She denies hitting her head or any loss of consciousness. She does complain of some left shoulder pain, which she states she has chronically. However, when she fell in the tub this has been exacerbated. She has history of significant COPD and pulmonary dysfunction and used to be on home oxygen, however has switched insurance carriers and is no longer on the home oxygen, even though she feels like she needs to be. She also has significant congestive heart failure. PHYSICAL EXAMINATION: General: Ms. Crocker is 84-year-old female appears well nourished, well developed, no acute distress. She is awake, alert, oriented x3. She is very polite and cooperative during examination. Vital Signs: Temperature 98.5 degrees Fahrenheit, heart rate 78, respiratory rate 20, blood pressure 137/50. HEENT: Normocephalic, atraumatic. Respiratory: Nonlabored breathing. Patient is on 3 L by nasal cannula with O2 saturation 100%. Cardiovascular: Regular rate and rhythm. Extremities: Examination of left upper extremity shows skin intact. Patient has no erythema or ecchymosis around the shoulder. She has mild tenderness to palpation around her glenohumeral joint. Nontender over the arm, elbow, forearm, wrist, and hand. She has significant decreased range of motion and crepitus with attempted passive range of motion of the shoulder with external rotation to about 10 degrees and forward flexion to about 90 degrees. She is unable to hold her arm flexed at 90 degrees. Motor is intact AIN, PIN, ulnar distribution. Sensation intact to light touch median, radial, ulnar, axillary nerves. Radial pulse palpable and equal bilaterally. Examination of right lower extremity shows short-leg splint to be clean, dry, intact. Toes are up and downgoing. Brisk capillary refill x5. No pain with passive stretch of the toes. Dorsalis pedis pulse is palpable. Calf is soft and compressible. She is nontender in her knee, thigh and hip. IMAGING: AP lateral mortise views of the right ankle were reviewed demonstrating a Olivier B nondisplaced lateral malleolus ankle fracture and good alignment. No obvious widening at the mortise however stress views not obtained. No obvious fracture along the medial malleolus. AP, scapular Y-views of the left shoulder were also obtained and reviewed demonstrating no fracture or dislocation. Patient has significant glenohumeral arthritis with inferior humeral head osteophyte. ASSESSMENT: An 84-year-old female status post fall with a right lateral malleolus ankle fracture and left shoulder osteoarthritis. PLAN: 1. Long discussion was had with the patient and family regarding diagnosis and treatment options. We will plan on trying to treat this conservatively given her age, minimal ambulatory status and increased medical comorbidities. She is not a good candidate for surgery from a cardiac and pulmonary status. We will plan on keeping her in the short leg splint until I see her in clinic. I will follow up with her in clinic in 1 to 2 weeks once she is discharged and at that time will take her out of the splint and get a stress x-ray to further evaluate the fracture. If it is stress negative then we can allow her to bear weight at that time, however if it is stress positive which I suspect it will be she will be about 6 weeks nonweightbearing on the fracture. I discussed with her the importance of remaining nonweightbearing. She will need to be on chemical DVT prophylaxis which she is currently on Eliquis, which I am okay with her restarting as are not planning surgery in the future. 2. In regards to her left shoulder, she has no acute fractures or dislocations. She has significant glenohumeral arthritis which likely has flared up after the fall. Given her dysfunction of the shoulder, I think there is a high likelihood that she has a chronic massive rotator cuff tear however this is nothing to address surgically as she has likely been living this for a long period of time. I told her we can talk about doing steroid injection in the shoulder in the office if she is still having issues with the shoulder at that time. In the meantime I encouraged her to continue to try to work on shoulder mobility and range of motion. She is okay to bear weight as tolerated through the left upper extremity. 3. Appreciate hospitalist recommendations. 4. Float bilateral heels to prevent heel ulcers. Ice and elevate right lower extremity as needed for pain. [facility]
[2019-09-13] MEDS: TYLENOL PM PO SCH (20:13)
[2019-09-14] MEDS: SOLU-MEDROL IV SCH ×4 (01:52→21:22)
[2019-09-14] MEDS: ATROVENT NEB INH SCH ×4 (03:49→22:26)
[2019-09-14 06:53] LABS: CALCIUM 8.8 mg/dL (8.8-10.2); POTASSIUM 4.4 mmol/L (3.5-5.1)
[2019-09-14] MEDS: DULCOLAX PR SCH ×3 (07:53→21:23)
[2019-09-14] MEDS: MIRALAX PO SCH ×3 (07:53→21:22)
[2019-09-14] MEDS: ELIQUIS PO SCH ×3 (07:53→21:22)
[2019-09-14] MEDS: MAG-OX PO SCH ×2 (07:53→10:17)
[2019-09-14] MEDS: METAMUCIL PO SCH ×3 (07:53→21:22)
[2019-09-14] MEDS: BENICAR PO SCH ×2 (07:53→10:18)
[2019-09-14] MEDS: ZYLOPRIM PO SCH ×2 (07:53→10:17)
[2019-09-14] MEDS: KLONOPIN PO SCH ×2 (07:54→10:17)
[2019-09-14] MEDS: CELEXA PO SCH ×2 (07:54→10:16)
[2019-09-14] MEDS: LASIX IV SCH ×4 (07:54→23:49)
--- NOTE | 2019-09-14 08:21 | ORTHOPAEDICS PROGRESS NOTE ---
DATE: 09/14/2019 SUBJECTIVE: No acute events overnight. Patient states she slept well. Pain is controlled. She is tolerating diet. OBJECTIVE: Afebrile. Vital signs stable. LABS: Hematocrit is 35, white count is 10. Her urinalysis negative. PHYSICAL EXAMINATION: Examination of the right lower extremity shows short-leg splint to be clean, dry, intact. Toes are up and downgoing. Brisk capillary refill in all toes. No signs of skin irritation around the edges of the splint. Examination of left upper extremity skin shows skin intact. Pain with shoulder range of motion. Nontender over elbow, forearm, wrist, and hand. Neurovascularly intact. ASSESSMENT: An 84-year-old female with right lateral malleolus ankle fracture and left shoulder osteoarthritis. PLAN: 1. Nonweightbearing, right lower extremity. Keep the heel floated at all times. Okay for therapy to work on hip and knee range of motion exercises. 2. Weightbearing as tolerated left upper extremity. Patient has significant glenohumeral arthritis. No fractures. 3. Appreciate hospitalist recommendations. 4. Continue Eliquis for anticoagulation. DISPOSITION: Per primary team. Patient will either need discharge home with 7 days a week home health versus discharge to longterm facility upon discharge. She will follow up with me in clinic in 2 weeks for skin check and x-rays of the ankle.
[2019-09-14] MEDS: XOPENEX NEB INH SCH ×3 (09:45→22:26)
[2019-09-14] MEDS: ROCEPHIN 1 GM in NS 50 ML IV SCH ×2 (10:18→11:18)
[2019-09-14] MEDS: ZITHROMAX 500 MG/NS 500 MG/250 ML IVPB IV SCH (11:22)
--- NOTE | 2019-09-14 13:33 | PROGRESS NOTE ---
DATE: 09/14/2019 SUBJECTIVE: The patient seems to be resting comfortably in bed. She is still complaining of shortness of breath. No chest pain, Cardiology Department and Pulmonary Department on board. She does have severe pulmonary hypertension with heart failure with preserved ejection fraction. For now, we will continue with same management. We have a negative balance of 1.4 L so far, and she seems to be tolerating p.o. At this moment, we are not planning to do any kind of surgery. The plan is to re-evaluate this patient probably in 2 weeks and recheck her ankle with an x-ray and go from there. OBJECTIVE: Vital Signs: Temperature 97.6 degrees, pulse 76, respiratory rate 16, blood pressure 141/57, oxygen saturation 95% on 2 L of nasal cannula. HEENT: Head normocephalic. No trauma. PERRLA. Neck: Supple. I cannot see JVD because of her neck size. Central trachea. Chest: Decreased breath sounds globally with coarse breath sounds and mild expiratory wheezing, some crepitus at the bases probably. Abdomen: Soft, protuberant, nontender, nondistended. No hepatosplenomegaly. Extremities: 2 to 3+ lower extremity edema with a right distal leg splint. Neurological: The patient is awake and alert. She is oriented. LABORATORY: Sodium 134, potassium 4.4, chloride 94, bicarbonate 29, BUN 32, creatinine 1, glucose 188, calcium 8.8. ASSESSMENT AND PLAN: 1. Right distal fibular fracture. She has a splint on the right lower extremity due to her fracture. No neurovascular damage that I can see. She can wiggle her toes. 2. Fluid overload. This patient has a history of congestive heart failure, severe pulmonary hypertension and preserved ejection fraction. We will continue with the same management for now. We have a negative balance of 1.4 L. 3. Possible bronchitis, wheezing. Continue with the same management. Pulmonary Department on board. 4. History of atrial fibrillation. Continue with same management for now. She is on Eliquis. 5. History of coronary artery disease, aware. 6. Morbid obesity with a body mass index of 47.3. 7. Sedentary, aware. She she moves slightly at home with help. 8. Likely chronic kidney disease. Her kidney function was good in September 2018, then in April 2019 the creatinine increased to 1.1 and since then it has been about the same. 9. Generalized weakness and physical deconditioning. Probably this patient needs to go to a rehab center, but apparently they will take this patient home with home health. Once this patient is more stable and Cardiology department and Pulmonary department are okay to discharge this patient home, I will go ahead and do it. 10. Hypoxemic respiratory failure, likely on chronic. At this moment it is multifactorial. On top of that she has probably bronchitis, but definitely, it is a combination of a lot of issues including obesity, hypoventilation syndrome, Pickwickian syndrome, and sleep apnea. cc: Carlos Escobar MD
--- NOTE | 2019-09-14 16:57 | PROVIDER PROGRESS NOTE ---
Progress Note Dr. Wen Progress Note/Pulmonary and or critical care Subjective: The patient is lying in bed with no acute distress noted. She is still complaining of SOB, but no audible wheezing noted at this time. Multiple Family members at the bedside. Objective: Vital Signs: T 97.5, BP 153/67, WY 90, RR 16, and SaO2 97% on NC 2L. Physical Examination: General: Morbidly obese. Lying in bed. No acute distress. HEENT: Normocephalic. Atraumatic. Trachea midline. Mucosa pink and moist. PERRL. Oropharynx clear. Chest: Even and unlabored. No increased work of breathing. Symmetrical excursion. Auscultation reveals improved expiratory wheezing bilaterally with left slightly worse than right. CVS: Regular rate and rhythm with S1 and S2 appreciated. Abdomen: Normoactive bowel sounds present. Soft. Nontender. Mildly distended. Extremities: BLE chronic venous stasis changes. No pedal edema. No cyanosis. No clubbing. Bilateral heel protectors on. Neuro: A/O x3. Speech fluent. Follow commands. Labs and Radiology: Laboratory Results 09/14/19 05:50 Sodium 134 L Potassium 4.4 Chloride 94 L Carbon Dioxide 29 Anion Gap 11 BUN 32 H Creatinine 1.0 H Estimated GFR/1.73 m2 53 BUN/Creatinine Ratio 32 Glucose 188 H D Calculated Osmolality 280 Calcium 8.8 Assessment: Mild hypoxia. Possible pneumonia. Acute on chronic congestive heart failure with preserved left ventricular ejection fraction. Right distal fibular fracture secondary to a mechanical fall at home on 09/11/19. Morbid obesity. DNR 1. Plan: Continue supplemental oxygen as needed. Continue antibiotics including azithromycin and ceftriaxone. Continue bronchodilators. Continue IV Solu-Medrol. We are weaning steroid from q6h to q8h at this time. Continue diuretic as tolerated. No surgery planning per Orthopedic.
--- NOTE | 2019-09-14 18:52 | PROGRESS NOTE ---
DATE: 09/14/2019 SUBJECTIVE: Patient continues without shortness of breath on supplemental oxygen per nasal cannula. There has been no chest pain. She supplements her diet with food brought in from [employer]. OBJECTIVE: Vital Signs: Blood pressure 139/63, heart rate 84, oxygen saturation 94% on nasal cannula oxygen. Neck: Jugular venous distention cannot be appreciated due to obesity. Chest: Auscultation of the chest reveals diminished breath sounds diffusely. Cardiac: Reveals a regular rate and rhythm without appreciable murmur or gallop. Extremities: Demonstrate mild lower extremity edema. LABORATORY DATA: Includes sodium of 134 potassium 4.4, chloride 94, carbon dioxide 29, BUN 32, creatinine 1.0, glucose 188. IMAGING: Echocardiography noteworthy for dilated right ventricle with a reduced right ventricular systolic function. Left ventricular ejection fraction is normal. Estimated systolic PA pressure by Doppler 70 mmHg. Mild aortic stenosis demonstrated. IMPRESSION: 1. Acute on chronic congestive heart failure with preserved left ventricular ejection fraction. Echocardiography suggests predominantly right-sided congestive heart failure related to pulmonary hypertension which in turn is likely related to obstructive sleep apnea and morbid obesity. 2. Mild coronary atherosclerosis by previous coronary angiography in 2007. Patient continues without angina. 3. Morbid obesity. 4. Probable obstructive sleep apnea. 5. Paroxysmal atrial fibrillation. 6. Currently admitted with right fibula fracture which is nondisplaced related to fall. RECOMMENDATIONS: 1. Given somewhat limited diuresis over the past 24 hours, increase Lasix to 40 mg IV every eight hours for next 24 hours. 2. Consider future evaluation with sleep study. She seems to be reluctant to pursue this but family has expressed interest. 3. Conservative cardiovascular management overall. cc: Young Cain MD
[2019-09-14] MEDS: TYLENOL PM PO SCH (21:22)
[2019-09-15] MEDS: ATROVENT NEB INH SCH ×3 (03:31→15:42)
[2019-09-15] MEDS: SOLU-MEDROL IV SCH ×3 (05:04→22:14)
[2019-09-15 07:20] LABS: CALCIUM 8.9 mg/dL (8.8-10.2); CREATININE 1.1 mg/dL (0.5-0.9); HEMATOCRIT 37.8 % (37.0-47.0); IMM GRAN# 0.06 X1000 (0.0-0.04); IMM GRAN% 0.3 % (0.0-0.5); LYMPH# 1.07 X1000 (1.2-3.4); LYMPH% 5.9 % (20.5-51.1); MAGNESIUM 2.4 mg/dL (1.5-2.7); MCHC 31.7 g/dL (33-37); MCV 100.8 FL (81-99); MONO% 2.2 % (1.7-9.3); NEUT# 16.71 X1000 (1.4-6.5); NEUT% 91.6 % (42.2-75.2); PHOSPHORUS 3.2 mg/dL (2.7-4.5); PLT 288 X1000 (130-400); POTASSIUM 4.4 mmol/L (3.5-5.1); RBC 3.75 XMIL (4.2-5.4); RDW 13.9 % (11.5-14.5); WBC 18.24 X1000 (4.8-10.8)
[2019-09-15 07:48] LABS: LYMPHS 7 % (21-51); MONO 3 % (1-9); SEGS 90 % (42-75)
[2019-09-15] MEDS ORDERED: LASIX IV SCH (08:30)
[2019-09-15] MEDS: ZYLOPRIM PO SCH (09:03)
[2019-09-15] MEDS: BENICAR PO SCH (09:03)
[2019-09-15] MEDS: CELEXA PO SCH (09:03)
[2019-09-15] MEDS: KLONOPIN PO SCH (09:03)
[2019-09-15] MEDS: METAMUCIL PO SCH ×2 (09:03→22:14)
[2019-09-15] MEDS: MIRALAX PO SCH ×2 (09:04→22:14)
[2019-09-15] MEDS: MAG-OX PO SCH (09:04)
[2019-09-15] MEDS: ELIQUIS PO SCH ×2 (09:04→22:14)
[2019-09-15] MEDS: DULCOLAX PR SCH ×2 (09:13→22:15)
[2019-09-15] MEDS: XOPENEX NEB INH SCH ×2 (10:09→15:42)
[2019-09-15] MEDS: ROCEPHIN 1 GM in NS 50 ML IV SCH (12:25)
[2019-09-15] MEDS: ZITHROMAX 500 MG/NS 500 MG/250 ML IVPB IV SCH (12:30)
--- NOTE | 2019-09-15 13:56 | PROGRESS NOTE ---
DATE: 09/15/2019 SUBJECTIVE: Patient continues without shortness of breath or chest discomfort on supplemental oxygen per nasal cannula. She has some cough when she tries and takes a deep breath. There has been no dysuria. OBJECTIVE: Vital Signs: Blood pressure 145/77, heart rate 68, oxygen saturation 95% to 96% on nasal cannula oxygen. There is no appreciable jugular venous distention. Chest: Clear to auscultation bilaterally. Cardiac: Reveals a regular rate and rhythm without appreciable murmur or gallop. Extremities are without edema. LABORATORY DATA: Includes a white blood cell count 18.24, hematocrit 37.8, hemoglobin 12.0, platelet count 288,000. Sodium 135, potassium 4.4, chloride 93, carbon dioxide 31, BUN 40, creatinine 1.1. Glucose 168. IMPRESSION: 1. Recent acute on chronic congestive heart failure with preserved left ventricular ejection fraction. This appears to be predominantly right-sided congestive heart failure given appearance of echocardiography with right ventricular enlargement and pulmonary hypertension. The patient appears to have improved with diuresis. 2. Mild coronary atherosclerosis by previous coronary angiography in 2007. Patient continues without angina. 3. Emerging leukocytosis. Etiology not clear but consider possible pulmonary or genitourinary source. 4. Morbid obesity. 5. Probable obstructive sleep apnea. 6. Paroxysmal atrial fibrillation. 7. Recent fall without loss of consciousness with sustained right fibular fracture which is nondisplaced. RECOMMENDATIONS: 1. Given emergence of prerenal azotemia, will reduce Lasix to once daily. 2. Incentive spirometry. 3. Consider future evaluation with sleep study. 4. Conservative cardiovascular management overall. cc: Young Cain MD
--- NOTE | 2019-09-15 15:28 | PROGRESS NOTE ---
DATE: 09/15/2019 SUBJECTIVE: The patient is resting comfortably in bed. I do not see any big changes compared with yesterday. The BUN and creatinine increased a little bit compared with yesterday, but not that much. Vital signs are stable. WBC increased but likely because of the steroids. She is still wheezing bilaterally. OBJECTIVE: Vital Signs: Temperature 98.4 degrees, pulse 68, respiratory rate 20, blood pressure 145/77, oxygen saturation 95% on 2 L of nasal cannula. HEENT: Head normocephalic, no trauma. PERRLA. Neck: Supple. I cannot see JVD because of her neck size. Central trachea. Chest: She has decreased breath sounds globally with coarse breath sounds and mild expiratory wheezing bilaterally. Some crepitus at the bases. Abdomen: Soft, protuberant, nontender, nondistended. No hepatosplenomegaly. Extremity: 2 to 3+ lower extremity edema. I do not see any neurovascular lesion. She is able to wiggle her toes. Right distal leg splint. Neurological: Awake, alert, she is oriented. LABORATORY: WBC 18.2, hemoglobin 12, hematocrit 37.8, platelet 288,000, sodium 135, potassium 4.4, chloride 93, bicarbonate 31, BUN 40, creatinine 1.1, glucose 168, calcium 8.9, magnesium 2.4, phosphorus 3.2. ASSESSMENT AND PLAN: 1. Right distal fibular fracture. She has a splint on the right lower extremity due to her fracture, no neurovascular damage
--- NOTE | 2019-09-15 19:01 | PROVIDER PROGRESS NOTE ---
Progress Note Dr. Wen Progress Note/Pulmonary and or critical care Subjective: The patient is lying in bed with no acute distress noted. She complains of occasional cough spell with production at times. She just had a breathing treatment less than 30 mins ago. Her caregiver at the bedside. Objective: Vital Signs: T 97.9, BP 150/80, [place] 65, RR 20, and SaO2 98% on NC 3L. Physical Examination: General: Morbidly obese. Lying in bed. No acute distress. HEENT: Normocephalic. Atraumatic. Trachea midline. Mucosa pink and moist. PERRL. Oropharynx clear. Chest: Even and unlabored. No increased work of breathing. Symmetrical excursion. Auscultation reveals rhonchi bilaterally with mild expiratory wheezing bilatearlly. CVS: Regular rate and rhythm with S1 and S2 appreciated. Abdomen: Normoactive bowel sounds present. Soft. Nontender. Mildly distended. Extremities: BLE chronic venous stasis changes. No pedal edema. No cyanosis. No clubbing. Bilateral heel protectors on. Neuro: A/O x3. Speech fluent. Follow commands. Labs and Radiology: Laboratory Results 09/15/19 09/15/19 06:12 06:12 WBC 18.24 H RBC 3.75 L Hgb 12.0 Hct 37.8 MCV 100.8 H MCH 32.0 H MCHC 31.7 L RDW Std Deviation 13.9 Plt Count 288 D MPV 10.0 Immature Gran % (Auto) 0.3 Neut % (Auto) 91.6 H Lymph % (Auto) 5.9 L [place] % (Auto) 2.2 Eos % (Auto) 0.0 Baso % (Auto) 0.0 Immature Gran # (Auto) 0.06 H Neut # (Auto) 16.71 H Lymph # (Auto) 1.07 L [place] # (Auto) 0.40 Eos # (Auto) 0.00 Baso # (Auto) 0.00 Segmented Neutrophils 90 H Lymphocytes 7 L Monocytes 3 Sodium 135 L Potassium 4.4 Chloride 93 L Carbon Dioxide 31 Anion Gap 11 BUN 40 H Creatinine 1.1 H Estimated GFR/1.73 m2 47 BUN/Creatinine Ratio 36 Glucose 168 H Calculated Osmolality 284 Calcium 8.9 Phosphorus 3.2 Magnesium 2.4 Assessment: Mild hypoxia. Possible pneumonia. Sputum culture on 09/11/19 showed no growth. Acute on chronic congestive heart failure with preserved left ventricular ejection fraction. Right distal fibular fracture secondary to a mechanical fall at home on 09/11/19. Morbid obesity. Leukocytosis. Likely secondary to Solu-Medrol. DNR 1. Plan: Continue supplemental oxygen as needed. Continue antibiotics including azithromycin and ceftriaxone. Continue bronchodilators. Continue IV Solu-Medrol. We are weaning steroid from q8h to q12h at this time. Continue diuretic as tolerated. Encourage incentive spirometer use routinely. No surgery planning per Orthopedic.
[2019-09-15] MEDS: TYLENOL PM PO SCH (22:14)
[2019-09-16] MEDS: XOPENEX NEB INH SCH ×4 (04:03→22:36)
[2019-09-16] MEDS: ATROVENT NEB INH SCH ×4 (04:03→22:36)
[2019-09-16 06:35] LABS: HEMATOCRIT 37.8 % (37.0-47.0); HEMOGLOBIN 11.9 g/dL (12.0-16.0); IMM GRAN# 0.05 X1000 (0.0-0.04); IMM GRAN% 0.4 % (0.0-0.5); LYMPH# 0.74 X1000 (1.2-3.4); LYMPH% 5.2 % (20.5-51.1); MCHC 31.5 g/dL (33-37); MCV 101.6 FL (81-99); MONO# 0.38 X1000 (0.11-0.59); MONO% 2.7 % (1.7-9.3); MPV 9.8 FL (7.4-10.4); NEUT# 12.93 X1000 (1.4-6.5); NEUT% 91.7 % (42.2-75.2); PLT 302 X1000 (130-400); RBC 3.72 XMIL (4.2-5.4); RDW 14.3 % (11.5-14.5)
--- NOTE | 2019-09-16 06:49 | Diag Imaging Result Doc PS360 ---
CHEST-1 VIEW - 09/16/2019 INDICATION: SOB COMPARISON: 09/13/2019 FINDINGS: Stable severe cardiomegaly and pulmonary vascular congestion. Stable bibasilar infiltrates. No new infiltrates. No significant pulmonary edema. IMPRESSION: No change from prior. Electronically signed by Kip Diaz 09/16/2019 6:46 AM
[2019-09-16] MEDS: TYLENOL PM PO SCH ×2 (06:50→20:40)
[2019-09-16 07:01] LABS: CALCIUM 8.9 mg/dL (8.8-10.2); POTASSIUM 4.7 mmol/L (3.5-5.1)
[2019-09-16] MEDS ORDERED: SOLU-MEDROL IV SCH (09:00)
[2019-09-16] MEDS: LASIX IV SCH (09:17)
[2019-09-16] MEDS: ELIQUIS PO SCH ×2 (09:18→20:40)
[2019-09-16] MEDS: DULCOLAX PR SCH (09:18)
[2019-09-16] MEDS: METAMUCIL PO SCH ×2 (09:18→20:40)
[2019-09-16] MEDS: BENICAR PO SCH (09:18)
[2019-09-16] MEDS: MIRALAX PO SCH ×2 (09:18→20:40)
[2019-09-16] MEDS: CELEXA PO SCH (09:18)
[2019-09-16] MEDS: MAG-OX PO SCH (09:18)
[2019-09-16] MEDS: ZYLOPRIM PO SCH (09:21)
[2019-09-16] MEDS: KLONOPIN PO SCH (09:21)
[2019-09-16] MEDS: ROCEPHIN 1 GM in NS 50 ML IV SCH (10:53)
[2019-09-16] MEDS: ZITHROMAX 500 MG/NS 500 MG/250 ML IVPB IV SCH (11:32)
--- NOTE | 2019-09-16 12:18 | PROGRESS NOTE ---
DATE: 09/16/2019 SUBJECTIVE: This patient is still wheezing today, and actually is wheezing more compared with yesterday. I wonder if she is having problems swallowing. I will ask for a swallow evaluation to evaluate this patient to see if she is having any kind of trouble or if she is aspirating. I have increased the dose of the steroids a little bit today. OBJECTIVE: Vital Signs: Temperature 97.6 degrees, pulse 75, respiratory rate 20, blood pressure 178/90, oxygen saturation 95% on 2 L of nasal cannula. HEENT: Head normocephalic. No trauma. PERRLA. Neck: Supple. I cannot see JVD because of her neck size. Central trachea. Chest: Decreased breath sounds globally with coarse breath sounds and expiratory wheezing bilaterally, some crepitus at the bases. Abdomen: Soft, protuberant, nontender, nondistended. No hepatosplenomegaly. Extremities: There is 2+ to 3+ lower extremity edema. I do not see any neurovascular lesion. She is able to wiggle her toes. Right distal leg splint. Neurological: The patient is awake and alert. She is oriented. LABORATORY DATA: WBC 14.1, hemoglobin 11.9, hematocrit 37.8, platelets 302,000. Sodium 135, potassium 4.7, chloride 94, bicarbonate 33, BUN 41, creatinine 1, glucose 166, calcium 8.9. ASSESSMENT AND PLAN: 1. Right distal fibular fracture. No plan for surgery at this moment. She has a splint on the right lower extremity. 2. Fluid overload. Continue with Lasix per Cardiology Department. 3. Possible bronchitis, wheezing. Continue with the same management. Pulmonary Department on board. Continue antibiotics, steroids, and breathing treatment. 4. History of atrial fibrillation. Continue with the same management for now. She is on Eliquis. 5. History of coronary artery disease. No chest pain. 6. Morbid obesity in a sedentary patient. Body mass index is around 47.3. 7. Likely chronic kidney disease, seems to be around her baseline. 8. Congestive heart failure with preserved ejection fraction, pulmonary hypertension. Cardiology Department on board. Continue to monitor. Continue with the same medications. 9. Generalized weakness and physical deconditioning. I discussed the case with the patient and the family. They would like to take this patient home with home health once this patient is ready to be discharged. 10. Hypoxemic respiratory failure, likely chronic and likely multifactorial as well. She likely has bronchitis, pulmonary hypertension, Pickwickian syndrome, obesity hypoventilation syndrome, sleep apnea. Pulmonary Department on board. cc: Carlos Escobar MD
--- NOTE | 2019-09-16 12:34 | PROGRESS NOTE ---
DATE: 09/16/2019 SUBJECTIVE: Patient denies shortness of breath or chest discomfort, on supplemental oxygen per nasal cannula. OBJECTIVE: Vital Signs: Blood pressure 164/93 to 178/90, heart rate 75, oxygen saturation 95% on nasal cannula oxygen at 2 L/minute. Neck: Jugular venous distention cannot be appreciated. Chest: Clear to auscultation. Cardiac: Reveals a regular rate and rhythm without appreciable murmur or gallop. Extremities: Demonstrate trace edema. LABORATORY DATA: Includes a white blood cell count of 14.1, hematocrit 37.8, hemoglobin 11.9, platelet count 302,000. Sodium 136, potassium 4.7, chloride 94, carbon dioxide 33, BUN 41, creatinine 1.0, glucose 166. IMPRESSION: 1. Recent acute on chronic congestive heart failure with preserved left ventricular ejection fraction. This appears to be a predominant right-sided congestive heart failure. Patient improving with diuresis. Current labs suggest prerenal azotemia. 2. Possible pneumonia. 3. Mild coronary atherosclerosis by previous coronary angiography in 2007. Patient continues without angina. 4. Morbid obesity. 5. Obstructive sleep apnea very likely. 6. Paroxysmal atrial fibrillation. Patient on long-term anticoagulation. 7. Recent fall without loss of consciousness with subsequent right fibular fracture which is nondisplaced. RECOMMENDATIONS: 1. Continue IV Lasix daily. 2. Incentive spirometry. 3. Consider future evaluation with sleep study. 4. Conservative cardiovascular management overall. cc: Young Cain MD
[2019-09-16] MEDS: SOLU-MEDROL IV SCH (16:39)
--- NOTE | 2019-09-16 17:08 | ORTHOPAEDICS PROGRESS NOTE ---
DATE: 09/16/2019 SUBJECTIVE: No acute events overnight. Patient is still having some shortness of breath and wheezing. She denies any pain in her right ankle. She has not gotten up with physical therapy. No other complaints. OBJECTIVE: Vital signs: Afebrile. Vital signs stable. Laboratory: White count is 14, hematocrit 38. Extremities: Examination of the right lower extremity shows the short leg splint to be clean, dry, intact. Toes are up and downgoing. Brisk capillary refill x5. Sensation grossly intact in her foot. No signs of skin irritation around the proximal aspect of the splint. She has a Prevalon boot to protect her heels. ASSESSMENT: An 84-year-old female with right lateral malleolus ankle fracture. PLAN: 1. The patient is nonweightbearing right lower extremity. I told her she will be nonweightbearing for at least 6 weeks, likely 8 weeks to allow her fracture to heal. Physical therapy to work with her on mobilization and work on [id number] transfers using her left foot to pivot. 2. Ice the right lower extremity as needed for pain. Float heels at all times. 3. Appreciate Hospitalist and Cardiology recommendations. 4. Disposition is per primary team. Patient is planning on being discharged home with 24 hour home health. I will follow up with her in the clinic in 10 to 14 days after discharge for repeat x-rays.
--- NOTE | 2019-09-16 17:42 | PROVIDER PROGRESS NOTE ---
Progress Note Dr. Wen Progress Note/Pulmonary and or critical care Subjective: The patient is lying in bed with no acute distress noted. She states she is feeling better today. She is eating some snack at this time. She does have some cough after drinking water during my encounter. Her sister at the bedside. Objective: Vital Signs: T 97.6, BP 178/90, RI 74, RR 18, and SaO2 97% on NC 3L. Physical Examination: General: Morbidly obese. Lying in bed. No acute distress. HEENT: Normocephalic. Atraumatic. Trachea midline. Mucosa pink and moist. PERRL. Oropharynx clear. Chest: Even and unlabored. No increased work of breathing. Symmetrical excursion. Clear to auscultation with diminished breathing sounds bilaterally. CVS: Regular rate and rhythm with S1 and S2 appreciated. Abdomen: Normoactive bowel sounds present. Soft. Nontender. Mildly distended. Extremities: BLE chronic venous stasis changes. No pedal edema. No cyanosis. No clubbing. Bilateral heel protectors on. Neuro: A/O x3. Speech fluent. Follow commands. Labs and Radiology: Laboratory Results 09/16/19 09/16/19 09/16/19 06:00 06:00 06:00 WBC 14.10 H RBC 3.72 L Hgb 11.9 L Hct 37.8 MCV 101.6 H MCH 32.0 H MCHC 31.5 L RDW Std Deviation 14.3 Plt Count 302 MPV 9.8 Immature Gran % (Auto) 0.4 Neut % (Auto) 91.7 H Lymph % (Auto) 5.2 L [place] % (Auto) 2.7 Eos % (Auto) 0.0 Baso % (Auto) 0.0 Immature Gran # (Auto) 0.05 H Neut # (Auto) 12.93 H Lymph # (Auto) 0.74 L [place] # (Auto) 0.38 Eos # (Auto) 0.00 Baso # (Auto) 0.00 Sodium 136 Potassium 4.7 Chloride 94 L Carbon Dioxide 33 Anion Gap 9 BUN 41 H Creatinine 1.0 H Estimated GFR/1.73 m2 53 BUN/Creatinine Ratio 41 Glucose 166 H Calculated Osmolality 286 Calcium 8.9 [id number] Pept 2789 H Assessment: Mild hypoxia. Possible pneumonia. Sputum culture on 09/11/19 showed no growth. CXR today shows stable severe cardiomegaly, pulmonary vascular congestion and stable bibasilar infiltrates. Acute on chronic congestive heart failure with preserved left ventricular ejection fraction. Right distal fibular fracture secondary to a mechanical fall at home on 09/11/19. Morbid obesity with witnessed snoring. Leukocytosis. Likely secondary to Solu-Medrol. DNR 1. Plan: Continue supplemental oxygen as needed. Continue antibiotics including azithromycin and ceftriaxone. Continue bronchodilators. Continue IV Solu-Medrol. We are weaning steroid from q8h to q12h at this time. Continue diuretic as tolerated. Encourage incentive spirometer use routinely. No surgery planning per Orthopedic. We discussed about the possible sleep apnea again, but patient refused to do any outpatient sleep study at this time. She states there is no way for her to tolerate sleep study or the CPAP/BiPAP therapy.
[2019-09-17] MEDS: SOLU-MEDROL IV SCH ×2 (01:54→09:17)
[2019-09-17] MEDS: ATROVENT NEB INH SCH ×3 (03:47→16:13)
[2019-09-17] MEDS: DULCOLAX PR SCH ×2 (04:08→11:52)
[2019-09-17 06:49] LABS: HEMATOCRIT 38.9 % (37.0-47.0); HEMOGLOBIN 12.2 g/dL (12.0-16.0); IMM GRAN# 0.06 X1000 (0.0-0.04); IMM GRAN% 0.5 % (0.0-0.5); LYMPH# 0.73 X1000 (1.2-3.4); LYMPH% 5.9 % (20.5-51.1); MCHC 31.4 g/dL (33-37); MCV 102.1 FL (81-99); MONO# 0.31 X1000 (0.11-0.59); MONO% 2.5 % (1.7-9.3); MPV 9.9 FL (7.4-10.4); NEUT# 11.31 X1000 (1.4-6.5); NEUT% 91.1 % (42.2-75.2); PLT 285 X1000 (130-400); RBC 3.81 XMIL (4.2-5.4); RDW 14.2 % (11.5-14.5); WBC 12.41 X1000 (4.8-10.8)
[2019-09-17 07:11] LABS: CALCIUM 8.9 mg/dL (8.8-10.2); POTASSIUM 4.8 mmol/L (3.5-5.1)
[2019-09-17 07:26] LABS: BANDS 6 % (0-1); LYMPHS 6 % (21-51); SEGS 86 % (42-75)
[2019-09-17 07:36] LABS: FERRITIN 89 ng/mL (13-150)
[2019-09-17] MEDS ORDERED: FOLIC ACID PO SCH (09:00)
[2019-09-17] MEDS: XOPENEX NEB INH SCH ×2 (09:00→16:13)
[2019-09-17] MEDS: BENICAR PO SCH (09:16)
[2019-09-17] MEDS: METAMUCIL PO SCH (09:17)
[2019-09-17] MEDS: LASIX IV SCH (09:17)
[2019-09-17] MEDS: MAG-OX PO SCH (09:17)
[2019-09-17] MEDS: ZYLOPRIM PO SCH (09:17)
[2019-09-17] MEDS: ELIQUIS PO SCH (09:17)
[2019-09-17] MEDS: CELEXA PO SCH (09:17)
[2019-09-17] MEDS: MIRALAX PO SCH (09:18)
[2019-09-17] MEDS: ROCEPHIN 1 GM in NS 50 ML IV SCH (11:30)
[2019-09-17] MEDS: KLONOPIN PO SCH (11:53)
[2019-09-17] MEDS: ZITHROMAX 500 MG/NS 500 MG/250 ML IVPB IV SCH (12:00)
--- NOTE | 2019-09-17 12:28 | PROGRESS NOTE ---
DATE: 09/17/2019 SUBJECTIVE: This patient is still complaining of shortness of breath and some cough, but the wheezing is better. I recommended to the patient and the family at the bedside that she needs to eat sitting up, so will decrease her risk of aspiration. I have decreased the dose of the steroids from 40 q.8 hours to 40 q.12 hours and hopefully I will discharge this patient during the weekend. OBJECTIVE: Vital Signs: Temperature 98.3 degrees, pulse 77, respiratory rate 16, blood pressure 154/67, oxygen saturation 98 on 2 L of nasal cannula. HEENT: Head normocephalic, no trauma. PERRLA. Neck: Supple. I cannot see JVD because of her neck size. Central trachea. Chest: Decreased breath sounds globally with coarse breath sounds and expiratory wheezing bilaterally, some crepitus at the bases. Abdomen: Soft, protuberant. Positive bowel sounds. Extremities: Two to 3+ lower extremity edema. I do not see any neurovascular lesion. She is able to wiggle her toes and bend her knees. Right distal leg splint. Neurological: Awake, alert, she is oriented. LABORATORY DATA: WBC 12.4, hemoglobin 12.2, hematocrit 38.9, platelets 285,000. Sodium 134, potassium 4.8, chloride 92, bicarbonate 32, BUN 39, creatinine 1, glucose 169, calcium 8.9. Vitamin B12 548, folic acid 5.2. ASSESSMENT AND PLAN: 1. Right distal fibular fracture. No plan for surgery at this moment. She will follow up with Orthopedic Surgery in a couple weeks. 2. Fluid overload. Continue with Lasix per Cardiology Department. 3. Possible bronchitis, wheezing. Continue with the same management. Pulmonary Department on board. Continue antibiotics. I have decreased the dose of the steroids a little bit. Continue breathing treatment. 4. History of atrial fibrillation. Continue with the same management for now. She is on Eliquis. 5. History of coronary artery disease. No chest pain. 6. Morbid obesity in a sedentary patient. Her body mass index is a around 47.3. 7. Likely chronic kidney disease, seems to be around her baseline. 8. Congestive heart failure with preserved ejection fraction and severe pulmonary hypertension. Continue with same management. Continue with same medications. She seems to be getting stable slowly. 9. Generalized weakness and physical deconditioning. I discussed the case with the patient and also a family member. Hopefully she will she will go home with home health and also have a sitter 20/01. She should be doing some physical activity at home and avoid as much as she can to be bed-bound, at least she needs to start doing range of motion as much as she can. 10. Hypoxemic respiratory failure, likely chronic and likely multifactorial as well due to obesity, pulmonary hypertension, Pickwickian syndrome, sleep apnea. 11. Likely sleep apnea. We have recommended a sleep study but it is going to be really difficult for this patient to get a sleep study done, so probably we can suggest an oral CPAP machine when she goes home. cc: Carlos Escobar MD
--- NOTE | 2019-09-17 12:48 | PROGRESS NOTE ---
DATE: 09/17/2019 SUBJECTIVE: Patient continues without shortness of breath or chest discomfort on room air presently. OBJECTIVE: Vital Signs: Blood pressure 154/67, heart rate 77, oxygen saturation 98%. Neck: Jugular distention cannot be appreciated. Chest: Clear to auscultation bilaterally. Cardiac Exam: Reveals a regular rate and rhythm without appreciable murmur, rub or gallop. Extremities: Without edema. LABORATORY DATA: Includes a white blood cell count 12.41, hematocrit 38.9, hemoglobin 12.2, platelet count 285,000. Sodium 134, potassium 4.8, chloride 92, carbon dioxide 32, BUN 39, creatinine 1.0, glucose 169. IMPRESSION: 1. Recent acute on chronic congestive heart failure with preserved left ventricular ejection fraction probably predominately right-sided congestive heart failure. Patient has improved with diuresis. 2. Possible pneumonia. 3. Mild coronary atherosclerosis by previous coronary angiography in 2007. Patient continues without angina. 4. Morbid obesity. 5. Status post recent fall without loss of consciousness with resultant right fibular fracture being managed nonoperatively. 6. Obstructive sleep apnea very likely. 7. Paroxysmal atrial fibrillation. Patient continues on long-term anticoagulation. RECOMMENDATIONS: 1. Transition to oral torsemide 40 mg daily. 2. Continue incentive spirometry. 3. Reasonable for patient to be discharged soon from a cardiovascular standpoint. I will see her further as an inpatient on an as-needed basis. cc: Young Cain MD [facility]
[2019-09-17 15:18] VITALS: BP 155/80
--- NOTE | 2019-09-17 19:13 | DISCHARGE SUMMARY ---
ADMISSION DATE: 09/11/2019 DISCHARGE DATE: 09/17/2019 DISCHARGE DIAGNOSES: 1. Right distal fibular fracture. 2. Fluid overload, improved. 3. Bronchitis with wheezing and likely bronchoconstriction. 4. History of atrial fibrillation on chronic anticoagulation. 5. History of coronary artery disease with no chest pain. 6. Morbid obesity with a body mass index of 47.3. 7. Chronic kidney disease. 8. Congestive heart failure with preserved ejection fraction and severe pulmonary hypertension. 9. Generalized weakness and physical deconditioning. 10. Hypoxemic respiratory failure, multifactorial. 11. Obesity hypoventilation syndrome/sleep apnea. PROCEDURES PERFORMED: 1. Ankle x-ray on the right side dated 09/11/2019. Impression: Fracture of the distal fibula. 2. Chest x-ray dated 09/11/2019. Impression: Pulmonary venous congestion and mild interstitial edema. 3. Head/cervical spine CT scan dated 09/11/2019. Impression: Mild chronic-appearing white matter changes but no evidence of acute intracranial pathology, advanced multilevel facet arthropathy but no evidence of fracture or other definite acute C-spine injury. 4. Chest x-ray dated 09/12/2019. Impression: Stable chest. 5. Chest x-ray dated 09/13/2019. Impression: Lower lung volumes, [*] of a small nonspecific infiltrate or areas of atelectasis in the right mid lung and lung base, otherwise no change. 6. Echocardiogram dated 09/13/2019. Impression: Ejection fraction 65%. Right ventricle is dilated with reduced right ventricular systolic function. Pulmonary arterial systolic pressure of 71 mmHg. 7. Left shoulder x-ray dated 09/13/2019. Impression: Significant degenerative arthropathy of the left shoulder. 8. Chest x-ray dated 09/16/2019. Impression: No changes from prior. HOSPITAL COURSE: An 84-year-old female admitted on 09/11/2019 presented to [facility] after she was walking out of a walk-in tub and slipped and fell and complained of right lateral ankle pain. She did hit her head also, but she denied any loss of consciousness. She was unable to bear any weight on her right ankle, and she started noting some swelling. X-ray showed right ankle fracture of the distal fibula. Chest x-ray showed pulmonary venous congestion and mild interstitial edema. CT scan of the head and cervical spine showed mild chronic-appearing white matter changes but no evidence of acute intracranial disease and no evidence of fracture or other definite acute C-spine injury. Sodium decreased at 129. A cast to her right leg was placed in the emergency department. She has been evaluated by multiple subspecialties including Cardiology, Pulmonary Department and Orthopedic Surgery Department. The orthopedic surgeon saw the fracture. This fracture is nondisplaced, and they had decided to treat it conservatively. They will follow this patient up as an outpatient in 2 weeks. On the other hand, we did an echocardiogram that showed a severe pulmonary hypertension and heart failure with preserved ejection fraction. She was placed on diuretics. She actually has a negative balance of 3.9 L during the course of this hospitalization, but also she was before coming to the hospital coughing up some phlegm white to yellowish and having flu-like symptoms. The influenza screen was negative as well as the strep. She was placed on breathing treatment. She has been wheezing, and she also was placed on steroids. She has been feeling better on a daily basis. She does have also severe constipation, and as per the patient, she has a bowel movement every 2 weeks or so. I told the patient that is not normal. I started this patient on MiraLAX and also a suppository twice a day. During this hospitalization, she had documented 2 bowel movements on 09/14/2019 and 09/16/2019, and I do recommend to continue with this kind of treatment at home, especially now that she is not going to be moving too much. On the other hand, I discussed with the patient's family multiple times and it looks like she does not walk too much at home. She is morbidly obese with a body mass index of 47.3. We noticed that this patient's breathing mostly during the night is hard. We have been told by the family that she occasionally stops breathing so she seems to have a severe sleep apnea, and we do recommend a sleep study, but as per the family and the patient, she does not want to go to a sleep study as an outpatient. Dr. Wen has recommended in that case an auto CPAP to try to help her in that regard. Family has suggested also to go home with oxygen and even though she did well without oxygen here during a home O2 evaluation, they would like to use the oxygen at least during the night. I do feel this is a good decision. Today she passed the home O2 evaluation because she was awake, and basically she was not moving at all because of the fracture and her obesity. The patient will be discharged today. Cardiology Department evaluated this patient, and they state that it is reasonable to send this patient home, so I will do it. I will give her a prescription for the oxygen and also for the CPAP machine. The patient seems to be stable, but this patient is also high-risk patient due to her multiple comorbidities, morbid obesity, sedentarism, diastolic heart failure, etc. She needs to follow up with her primary care doctor, Cardiology and Orthopedic Surgery, and I do feel probably this patient will not go to those appointments or she will not set up the appointments. I have been told multiple times by different family members that it is extremely hard to take this patient out of the house for multiple reasons. PHYSICAL EXAMINATION ON DISCHARGE: Vital signs: Temperature 98.8 degrees, pulse 80, respiratory rate 16, blood pressure 155/80, oxygen saturation 98 on room air. HEENT: Head normocephalic, no trauma. PERRLA. Neck: Supple. No JVD. No masses. Central trachea. Chest: Decreased breath sounds globally with coarse breath sounds and mild end-expiratory wheezing bilaterally. Abdomen: Soft, protuberant. Positive bowel sounds. Extremities: 2 to 3+ lower extremity edema. I do not see any neurovascular lesion. She is able to wiggle her toes, and she has a right distal leg splint. Neurological examination: She is alert and oriented, generalized weakness. LABORATORY DATA: WBC 12.4, hemoglobin 12.2, hematocrit 38.9, platelets 285,000, sodium 134, potassium 4.8, chloride 92, bicarbonate 32, BUN 39, creatinine 1, glucose 169, calcium 8.9, folic acid 5.2, vitamin B12 548. DISCHARGE MEDICATIONS: Acetaminophen/diphenhydramine 1 tablet p.o. at bedtime, allopurinol 300 mg p.o. daily, Eliquis 5 mg p.o. b.i.d., Tessalon 100 mg p.o. t.i.d. as needed for cough, Dulcolax suppository 10 mg rectally twice a day as needed for constipation, cefdinir 300 mg p.o. b.i.d. to complete 5 more days, citalopram 20 mg p.o. daily, clonazepam 0.5 mg p.o. daily, folic acid 1 mg p.o. b.i.d. x60 pills, [place] 7.5 one tablet p.o. q.4 hours as needed for pain, magnesium oxide 400 mg p.o. daily, Medrol Dosepak as directed, olmesartan 40 mg p.o. daily, MiraLAX 17 g p.o. b.i.d., Metamucil 1 tablet p.o. b.i.d. and torsemide 40 mg p.o. daily. FOLLOWUP: Follow up with Dr. Omkar Betancourt in 2 weeks. Also follow up with Cardiology Department, Dr. Hassan. They need to call for an appointment. Follow up primary care doctor, Dr. Dixon in 1 week. TIME DISCHARGING THIS PATIENT: 45 minutes. cc: Carlos Escobar MD
[2019-09-17] MEDS ORDERED: SOLU-MEDROL IV SCH (21:00)
[2019-09-18] MEDS ORDERED: DEMADEX PO SCH (09:00)
== END 2019-09-17 17:26 | disposition home health service (06) | DRG 562 ==
LOC: SUPCPDRO → EDIPHOLD 11:17 → ED 11:17 → OBSVTOIN 15:38 → 4N 17:27
PROVIDERS: ATTEND Internal Medicine